=== PATIENT | male | born 1945 | race Caucasian/White ===

== ENCOUNTER 2017-02-21 07:57 | Day surgery (SDC) | payer MEDICARE ==
[~2017-02-21] VITALS: Ht 177.8 cm; Wt 118.2 kg
[~2017-02-21 07:57] MED LIST: ASPI81CH CHEW; CHLO25TA2 PO; LEFL20TA11 PO; LISI-588 PO; PYRI100T PO; SODI650T PO; ULOR40TA PO; VITA10003 PO
[2017-02-21] MEDS ORDERED: SODIUM CHLOR 0.9% 1000 ML IV SCH (08:00)
[2017-02-21] MEDS ORDERED: CHOL1TAB42 PO ×2 (08:27→08:32)
[2017-02-21] MEDS ORDERED: OCUVTAB PO ×2 (08:27→08:32)
[2017-02-21] MEDS ORDERED: ROSU1TAB4 PO ×2 (08:27→08:32)
[2017-02-21] MEDS ORDERED: FURO1TAB62 PO ×2 (08:27→08:32)
[2017-02-21] MEDS ORDERED: CYAN1TAB24 PO ×2 (08:27→08:32)
[2017-02-21] MEDS ORDERED: [UNRECOGNIZED DRUG - CODE] PO ×2 (08:27→08:32)
[2017-02-21] MEDS ORDERED: SODIUM CHLORIDE 2 ML FLUSH PRN IV FLUSH (08:30)
[2017-02-21] MEDS ORDERED: ULOR40TA PO (08:32)
[2017-02-21] MEDS ORDERED: ASPI81CH CHEW (08:32)
[2017-02-21] MEDS ORDERED: LEFL20TA11 PO (08:32)
[2017-02-21] MEDS ORDERED: SODI650T PO (08:32)
[2017-02-21] MEDS ORDERED: PYRI100T PO (08:32)
[2017-02-21] MEDS ORDERED: SODIUM CHLORIDE 2 ML FLUSH BID IV FLUSH SCH (09:00)
[2017-02-21 09:07] VITALS: BP 146/81; PULSE 75; RESP 20; TEMP 98.7; O2SAT 97
[2017-02-21 09:18] LABS: AUTOMATED NEUTROPHIL # 8.3 TH/MM3 (1.8-7.7); BASOPHIL # 0.1 TH/MM3 (0-0.2); BASOPHIL % 0.5 % (0.0-2.0); EOSINOPHIL # 0.2 TH/MM3 (0-0.4); HEMATOCRIT 36.4 % (39.0-51.0); HEMO FLAGS DIFF FINAL; LYMPH % 11.2 % (9.0-44.0); LYMPHOCYTE # 1.2 TH/MM3 (1.0-4.8); MEAN CELL VOLUME 88.4 FL (80.0-100.0); MEAN CORPUSCULAR HEMOGLOBIN 28.9 PG (27.0-34.0); MEAN CORPUSCULAR HGB CONC 32.7 % (32.0-36.0); MONO % 7.2 % (0.0-8.0); NEUT % 79.1 % (16.0-70.0); PLATELET COUNT 251 TH/MM3 (150-450); RED BLOOD COUNT 4.12 MIL/MM3 (4.50-5.90); RED CELL DISTRIBUTION WIDTH 13.9 % (11.6-17.2); WHITE BLOOD COUNT 10.5 TH/MM3 (4.0-11.0)
[2017-02-21 09:27] LABS: APTT (PATIENT) 29.8 SEC (24.3-30.1); PROTHROMBIN TIME - PATIENT 10.5 SEC (9.8-11.6)
[2017-02-21] MEDS ORDERED: LIDOCAINE 1%/EPINEPHrine 1:100,000 SOLN 20 ML VIAL ONE (09:29)
[2017-02-21] MEDS ORDERED: fentaNYL CITRATE 250 MCG/5 ML AMP ONE (09:38)
[2017-02-21] MEDS ORDERED: MIDAZOLAM HCL 2 MG/2 ML VIAL ONE (09:38)
[2017-02-21 10:25] VITALS: BP 125/68; PULSE 82; RESP 20; TEMP 97.9; O2SAT 95
[2017-02-21 10:40] VITALS: BP 122/61; PULSE 65; RESP 20; O2SAT 97
[2017-02-21 10:55] VITALS: BP 126/64; PULSE 70; RESP 18; O2SAT 98
[2017-02-21 11:10] LABS: BONE MARROW PROCESSING COMPLETE; IRON STAIN DONE; JENNER GIEMSA STAIN DONE
--- NOTE | 2017-02-21 14:25 | RADRPT ---
EXAM DATE/TIME: 02/21/2017 09:53 [facility] COMPARISON: No previous studies available for comparison. INDICATIONS : Possible myeloma. SEDATION TIME: 30 minutes BIOPSY SITE: Right MEDICATION(S): 1.) 4 mg midazolam (Versed) IV 2.) 250 mcg fentanyl (Sublimaze) IV DEVICE(S): 1.) 11 gauge Bone marrow biopsy needle MEDICAL HISTORY : None. SURGICAL HISTORY : None. ENCOUNTER: Initial ACUITY: 1 day PAIN SCORE: 0/10 LOCATION: Right A total of one core specimen(s) were obtained and sent to the laboratory for pathologic evaluation. PROCEDURE: 1. CT guided bone marrow biopsy. 2. Conscious sedation with continuous EKG and oximetry monitoring. 3. EKG and oximetry remained stable throughout the procedure. Prior to the procedure informed consent was obtained. Any appropriate prior imaging studies were rev iewed. Using automated exposure control and adjustment of the mA and/or kV according to patient size , radiation dose was kept as low as reasonably achievable to obtain optimal diagnostic quality images . DICOM format image data is available electronically for review and comparison. The site was prepped in a sterile fashion. Full sterile technique was used, including cap, mask, sam rile gloves and gown and a large sterile sheet. Hand hygiene and 2% chlorhexidine and/or betadine/al cohol prep was utilized per protocol for cutaneous antisepsis. The skin and subcutaneous tissues wer e infiltrated with local anesthetic solution. With CT guidance the previously identified target was localized. Biopsy was performed using the presc ribed needle as above. Following biopsy marrow aspiration was performed with repeat puncture. Adequa te hemostasis was obtained with compression at the puncture site. Follow-up CT scan reveals no hemorrhage. Conscious sedation was performed with the prescribed dosages and duration as above in the presence of an independent trained radiology nurse to assist in the monitoring of the patient. EKG and oximetry remained stable throughout the procedure. The patient tolerated the procedure well and there were no complications. The patient was sent to Radiology Outpatient Unit in stable condition. CONCLUSION: 1. Uncomplicated CT guided bone marrow aspirate. 2. Uncomplicated CT guided bone marrow biopsy. Mamadou Nicole MD FACR on February 21, 2017 at 14:21 Board Certified Radiologist. This report was verified electronically.
== END 2017-02-21 11:15 | disposition home or self-care (01) ==
LOC: HRAD 07:57 → HRIP 08:06 → HRAD 11:15
PROVIDERS: ATTEND Internal Medicine Hematology
DX: D47.2 Monoclonal gammopathy (principal); C90.30 Solitary plasmacytoma not having achieved remission; Z01.818 Encounter for other preprocedural examination; I10 Essential (primary) hypertension; I12.9 Hypertensive chronic kidney disease with stage 1 through stage 4 chronic kidney disease, or unspecified chronic kidney disease; N18.9 Chronic kidney disease, unspecified; G47.30 Sleep apnea, unspecified; M06.9 Rheumatoid arthritis, unspecified; N20.0 Calculus of kidney; M19.90 Unspecified osteoarthritis, unspecified site
CPT/HCPCS: 38221; 77012; 85025; 85097; 85610; 85730; 88184; 88185; 88305; 88311; 88313; 88341; 88342; 99152; 99153; C1830; G0364; J2250; J3010; J7030

== ENCOUNTER 2017-04-29 06:37 | Day surgery (SDC) | payer MEDICARE ==
[2017-04-29] VITALS (10 sets, daily range): BP systolic 104–141; BP diastolic 53–106; PULSE 75–89; RESP 18–20; TEMP 97.7–98.3; O2SAT 95–99
[~2017-04-29] VITALS: Ht 177.8 cm; Wt 113.6 kg
[~2017-04-29 06:37] MED LIST changes: -CHLO25TA2 PO; +CHOL1TAB42 PO; +CYAN1TAB24 PO; +FURO1TAB62 PO; -LISI-588 PO; +OCUVTAB PO; +ROSU1TAB4 PO; -VITA10003 PO; +[UNRECOGNIZED DRUG - CODE] PO
[2017-04-29] MEDS ORDERED: GELATIN 12 MM/7 MM FOAM ONE (06:38)
[2017-04-29] MEDS ORDERED: SODIUM CHLOR 0.9% 1000 ML IV SCH (07:15)
[2017-04-29] MEDS ORDERED: LIDOCAINE HCL 1% 20 ML VIAL ONE (07:58)
[2017-04-29] MEDS ORDERED: MIDAZOLAM HCL 5 MG/5 ML VIAL ONE (08:12)
[2017-04-29] MEDS ORDERED: THROMBIN (TOPICAL) 5,000 UNIT VIAL ONE (08:21)
--- NOTE | 2017-04-29 09:02 | RADRPT ---
EXAM DATE/TIME: 04/29/2017 08:17 [facility] COMPARISON: No previous studies available for comparison.8 INDICATIONS : Left sided nephrotic proteinuria. SEDATION TIME: 15 minutes BIOPSY SITE: Left kidney. MEDICATION(S): 1.) 3 mg midazolam (Versed) IV 2.) 150 mcg fentanyl (Sublimaze) DEVICE(S): 1.) 18 gauge BioPince needle 2.) 16 gauge Alva blunt needle MEDICAL HISTORY : Renal calculi. Prostate cancer. SURGICAL HISTORY : Tonsillectomy. ENCOUNTER: Initial ACUITY: 1 day PAIN SCORE: 10 LOCATION: Left kidney region. A total of three core specimen(s) were obtained and sent to the laboratory for pathologic evaluation. PROCEDURE: 1. CT guided left kidney biopsy. 2. Conscious sedation with continuous EKG and oximetry monitoring. 3. EKG and oximetry remained stable throughout the procedure. Prior to the procedure informed consent was obtained. Any appropriate prior imaging studies were rev iewed. Using automated exposure control and adjustment of the mA and/or kV according to patient size, radiat ion dose was kept as low as reasonably achievable to obtain optimal diagnostic quality images. DICOM format image data is available electronically for review and comparison. The site was prepped in a sterile fashion. Full sterile technique was used, including cap, mask, sam rile gloves and gown and a large sterile sheet. Hand hygiene and 2% chlorhexidine and/or betadine/al cohol prep was utilized per protocol for cutaneous antisepsis. The skin and subcutaneous tissues wer e infiltrated with local anesthetic solution. With CT guidance the previously identified target was localized. Biopsy was performed using the presc ribed needle as above. Adequate hemostasis was obtained with compression at the puncture site. Follow-up CT scan reveals no hemorrhage. The patient tolerated the procedure well and there were no complications. The patient was returned to the Radiology Outpatient Unit in stable condition. CONCLUSION: Uncomplicated CT guided biopsy. Joe Bargre MD on April 29, 2017 at 9:00 Board Certified Radiologist. This report was verified electronically.
[2017-04-29 10:37] LABS: HEMATOCRIT 30.5 % (39.0-51.0); MEAN CELL VOLUME 87.1 FL (80.0-100.0); MEAN CORPUSCULAR HGB CONC 33.3 % (32.0-36.0); PLATELET COUNT 285 TH/MM3 (150-450); RED CELL DISTRIBUTION WIDTH 14.5 % (11.6-17.2); REVIEW FLAG FINAL; WHITE BLOOD COUNT 10.3 TH/MM3 (4.0-11.0)
--- NOTE | 2017-04-29 11:36 | PD.RAD ---
Post CT Procedure Prog Note Pre Procedure Diagnosis: (1) Renal calculus, right Post Procedure Diagnosis: (1) Renal calculus, right Procedure Date: Apr 29, 2017 Supervising Radiologist: Joe Barger Anesthesia: Conscious Sedation Plan of Activity Patient to Unit: [facility] Patient Condition: Good See PACS Report for procedural detail/treatment Biopsy Imaging Guidance: CT Side: Left Biopsy Procedure: Kidney Specimen: Core Biopsy Joe Barger MD Apr 29, 2017 11:36
[2017-04-29 12:10] LABS: AUTOMATED NEUTROPHIL # 7.1 TH/MM3 (1.8-7.7); BASOPHIL # 0.1 TH/MM3 (0-0.2); BASOPHIL % 0.8 % (0.0-2.0); EOSINOPHIL # 0.3 TH/MM3 (0-0.4); EOSINOPHIL % 3.1 % (0.0-4.0); HEMATOCRIT 29.9 % (39.0-51.0); HEMO FLAGS DIFF FINAL; LYMPH % 13.5 % (9.0-44.0); LYMPHOCYTE # 1.3 TH/MM3 (1.0-4.8); MEAN CELL VOLUME 86.6 FL (80.0-100.0); MEAN CORPUSCULAR HEMOGLOBIN 29.3 PG (27.0-34.0); MEAN CORPUSCULAR HGB CONC 33.8 % (32.0-36.0); MONO % 6.3 % (0.0-8.0); NEUT % 76.3 % (16.0-70.0); PLATELET COUNT 247 TH/MM3 (150-450); RED BLOOD COUNT 3.45 MIL/MM3 (4.50-5.90); RED CELL DISTRIBUTION WIDTH 14.4 % (11.6-17.2); WHITE BLOOD COUNT 9.4 TH/MM3 (4.0-11.0)
== END 2017-04-29 13:00 | disposition home or self-care (01) ==
LOC: HRAD 06:37 → HRIP 06:43 → HRAD 13:00
PROVIDERS: ATTEND Surgery
DX: R80.8 Other proteinuria (principal); N20.0 Calculus of kidney; Z85.46 Personal history of malignant neoplasm of prostate
CPT/HCPCS: 50200; 77012; 85025; 85027; 88313; 88346; 88348; 88350; 88368; J2250; J3010

== ENCOUNTER → 2017-05-09 | Day surgery (SDC) | payer MEDICARE ==
[~2017-05-09] MED LIST changes: +ACETAMINOPHEN 1000 MG/100 ML 100 ML IV ONE; +BUPIVACAINE/EPINEPHRINE 0.25% 50 ML VIAL ONE; +KETOROLAC TROMETHAMINE 30 MG/ML (IVP) VIAL IV PUSH ONE; +LACTATED RINGER'S 1000 ML INJ 1,000 ML ONE; +LIDOCAINE 1.5%/EPINEPHrine 1:200,000 PF SOLN 30 ML AMP ONE; +MIDAZOLAM HCL 2 MG/2 ML VIAL ONE; +ONDANSETRON HCL 4 MG/2 ML VIAL IV PUSH ONE; +PROPOFOL 100 MG/10 ML INJ IV ONE; +ceFAZolin INJ 1,000 MG VIAL ONE
--- NOTE | 2017-05-09 10:31 | MP ---
cc: BRADY COOK DATE OF SURGERY: 05/09/2017 PREOPERATIVE DIAGNOSIS Large mass upper back. POSTOPERATIVE DIAGNOSIS Abscess (probable sebaceous cyst) upper back. PROCEDURE Incision, drainage and resection of the capsule of the abscess with primary closure. SURGEON Alonzo. LIGHTHOUSE KEEPER Florentin Stern, MS III. ANESTHESIA General. OPERATIVE FINDINGS AND PROCEDURE The patient was brought to the operating room and placed on a hurtado bag and rotated in the proper position for access to the upper back. Satisfactory general anesthesia was obtained and the upper back was then prepped and draped in the usual sterile fashion. Due to the fluctuance of this area an 18-gauge needle was used to penetrate the cavity and returned pus which was sent for culture and sensitivity as well as Gram stain. A transverse incision was then made and carried down sharply through the subcutaneous tissue and the cautery being used for hemostasis. Approximately 600 mL of purulent material was withdrawn. It was decided to resect the abscess cavity capsule which was accomplished by blunt dissection as well as use of the cautery to resect the entire thing. The abscess was approximately 15 x 10 cm in diameter. After resection of the capsule which was accomplished completely with the cautery, it was sent for permanent pathology. Hemostasis was strictly assured. A #10 fluted drain was placed into the abscess cavity through a separate stab incision and sutured to the skin with 3-0 nylon. After checking again for hemostasis, which was seen to be satisfactory, the skin was closed with kailey. The patient was then awakened and taken from the operating room, in satisfactory condition, having tolerated the procedure without problem. Estimated blood loss was 500 mL. The instrument counts, sponge counts and needle counts were reported as being correct x2 at the end of the procedure. MD CAMILO Martinez/LARON /10:10 AM /10:20 AM
== END | disposition home or self-care (01) ==
LOC: ESDC 06:35
PROVIDERS: ATTEND Surgery
DX: L02.212 Cutaneous abscess of back [any part, except buttock and flank] (principal); B95.7 Other staphylococcus as the cause of diseases classified elsewhere
CPT/HCPCS: 00300; 11406; 87015; 87070; 87077; 87116; 87186; 87205; 87206; 88304; J0131; J0690; J1885; J2250; J2405; J3010; J7120; 88305

== ENCOUNTER 2018-03-27 06:44 | Observation (INO) ==
[2018-03-27] MEDS ORDERED: Metoprolol Inj 5 MG/5 ML Vial ONE (07:10)
[2018-03-27] MEDS ORDERED: Sod Chloride 0.9% Inj 1,000 ML IV.SIG SCH ×2 (07:15→07:45)
[2018-03-27] MEDS ORDERED: Atropine Inj 1 MG/ML Vial IV.PUSH PRN ×2 (07:35→11:35)
[2018-03-27] MEDS ORDERED: Metoprolol Inj 5 MG/5 ML Vial IV.PUSH PRN (07:35)
[2018-03-27] MEDS ORDERED: DOBUTamine 250 MG/250 ML Premx 250 MG/250 ML BAG IV.CONT ONE (07:44)
[2018-03-27] MEDS ORDERED: DOBUTamine 250 MG/250 ML Premx 250 MG/250 ML BAG IV.CONT SCH (08:00)
[2018-03-27 08:12] LABS: Baso # (Auto) 0.1 th/mm3 (0.0-0.2); Baso % (Auto) 0.9 % (0.0-2.0); Eos # (Auto) 0.3 th/mm3 (0.0-0.4); Eos % (Auto) 3.6 % (0.0-4.0); Hematocrit 35.5 % (39.0-51.0); Hemoglobin 11.7 gm/dL (13.0-17.0); Lymph # (Auto) 1.1 th/mm3 (1.0-4.8); Lymph % (Auto) 14.9 % (9.0-44.0); Mean Corpuscular Hemoglobin 29.9 pg (27.0-34.0); Mean Corpuscular Volume 90.5 fL (80.0-100.0); Mean Platelet Volume 9.7 fL (7.0-11.0); Mono # (Auto) 0.8 th/mm3 (0.0-0.9); Mono % (Auto) 10.9 % (0.0-8.0); Neut # (Auto) 5.3 th/mm3 (1.8-7.7); Neut % (Auto) 69.7 % (16.0-70.0); Platelet Count 158 th/mm3 (150-450); Red Blood Count 3.92 mil/mm3 (4.50-5.90); Red Cell Distribution Width 14.8 % (11.6-17.2); White Blood Count 7.6 th/mm3 (4.0-11.0)
[2018-03-27 08:27] LABS: Albumin 3.4 g/dL (3.4-5.0); Carbon Dioxide 26.5 meq/L (21.0-32.0); Potassium 4.1 meq/L (3.5-5.1)
[2018-03-27] MEDS ORDERED: fentaNYL Citrate Inj 100 MCG/2 ML Ampul ONE ×2 (10:02→11:13)
[2018-03-27] MEDS ORDERED: Heparin/NS PF Inj 1,000 ML ONE (10:03)
--- NOTE | 2018-03-27 10:19 | ECHRPT ---
Indication: POSS TAVR CONCLUSIONS Mildly dilated left ventricle. The left ventricular systolic function is severely reduced with an estimated ejection fraction in th e range of 25-30%. Mild thickening of the aortic valve leaflets. Diffuse calcification of the aortic valve. Severe aortic valve stenosis. Aortic valve area is 0.56 cm. Aortic valve mean gradient is 42 mmHg. dobutamine infusion at 10 mcg/min BP: / HR: Rhythm: Sinus MEASUREMENTS (Male / Female) Normal Values Technical Quality:Fair 2D ECHO LV Diastolic Diameter PLAX 5.9 cm 4.2 - 5.9 / 3.9 - 5.3 cm LV Systolic Diameter PLAX 5.3 cm IVS Diastolic Thickness 1.1 cm 0.6 - 1.0 / 0.6 - 0.9 cm LVPW Diastolic Thickness 1.1 cm 0.6 - 1.0 / 0.6 - 0.9 cm LV Relative Wall Thickness 0.4 RV Internal Dim ED PLAX 3.0 cm LVOT Diameter 2.3 cm Aortic Root Diameter 3.4 cm LA Systolic Diameter LX 4.6 cm 3.0 - 4.0 / 2.7 - 3.8 cm DOPPLER AV Peak Velocity 427.0 cm/s AV Peak Gradient 72.9 mmHg AV Mean Gradient 42.0 mmHg AV Velocity Time Integral 79.7 cm LVOT Peak Velocity 57.9 cm/s LVOT Peak Gradient 1.3 mmHg LVOT Velocity Time Integral 10.7 cm AV Area Cont Eq vti 0.6 cm AV Area Cont Eq pk 0.6 cm FINDINGS LEFT VENTRICLE Mildly dilated left ventricle. The left ventricular systolic function is severely reduced with an estimated ejection fraction in th e range of 25-30%. AORTIC VALVE Trileaflet aortic valve. Mild thickening of the aortic valve leaflets. Diffuse calcification of the aortic valve. Severe aortic valve stenosis. Aortic valve area is 0.56 cm. Aortic valve mean gradient is 42 mmHg. Yon Parks MD, FACC (Electronically Signed) Final Date:27 March 2018 10:19
[2018-03-27] MEDS ORDERED: Lidocaine PF 1% Inj 30 ML Vial ONE (10:27)
[2018-03-27] MEDS ORDERED: Sodium Chlor 0.9% Inj 250 ML IV.SIG ONE (11:35)
[2018-03-27] MEDS ORDERED: oxyCODONE/Acetaminophen 10/325 Tablet PO PRN (11:35)
[2018-03-27] MEDS ORDERED: Temazepam 15 MG Capsule PO PRN (11:35)
[2018-03-27] MEDS ORDERED: Morphine Inj 4 MG/ML Vial IV.PUSH PRN (11:35)
[2018-03-27] MEDS ORDERED: Bacitracin Oint 0.9 GM Packet TOPICAL ONE (11:35)
[2018-03-27] MEDS ORDERED: Lidocaine 1% Inj 50 ML Vial INFILTRATN PRN (11:35)
[2018-03-27] MEDS ORDERED: Misc Info for Pharmacy OTHER STA (11:35)
[2018-03-27] MEDS ORDERED: Acetaminophen 325 MG Tablet PO PRN (11:35)
[2018-03-27] MEDS ORDERED: Lidocaine 2% Jelly 5 ML Syringe TOPICAL PRN (11:35)
[2018-03-27] MEDS ORDERED: Iohexol 350 MG/ML 50 ML Vial (for Cath Lab) IVCONTRAST ONE (11:36)
[2018-03-27] MEDS ORDERED: hydrALAZINE 25 MG Tablet PO PRN (11:39)
[2018-03-27] MEDS ORDERED: hydrALAZINE HCl Inj 20 MG/ML Vial IV.PUSH PRN (11:40)
--- NOTE | 2018-03-27 11:40 | CATHPROC ---
[employer] HIS Report Study Information Study Number Admission Scheduled Start Study Start [id number] Mar 27 2018 6:44AM 03/27/2018 Mar 27 2018 9:56AM [place] Service Cardiac Pacer/ICD Admit Source Facility Department Other [facility] - Authorization Specialist Physician and Clinical Staff Initial Yon Marrero Novelty Twister Tender Jesus Vuong RN Novelty Twister Tender Joshua NIELSEN, Baldemar RecordSissy Mata,RT(R) Scrub Shy Neumann ,RT(R) Procedures Performed Procedure Location (Site) Vessel Name Coronary Angiograms LCA Left Coronary Coronary Angiograms RCA Right Coronary Stent OM1 Prox CIRC Wire insertion Fem Art (right) Femoral Art Wire insertion Fem Vein (right) Femoral Vein Equipment Time Matcher Description Size Mfg Part Number Used/Scraped COPILOT VALVE, BLEEDBACK [id number] 11:00 LOW CRITICAL CARE Used CONTROL *[id number] ARROW INTERNATIONAL CATHETER, FR.7 BALLOON [id number] 10:00 FR 7 Used INC. WEDGE PRESSURE *[id number] TRANSDUCER, TRUWAVE [id number] 10:00 VELAZQUEZ MORA * Used W/STOCKCOCK *[id number] 670-004-00 *6905854 670-008-00 *5115125 670-008-00 *2783470 670-054-00 *[id number] 670-056-00 *[id number] 10:00 SYSTRAN BLANKET,WARM AIR CCL * Used *[id number] 10:00 SYSTRAN PACK, CCL CUSTOM * Used *[id number] [id number] 10:00 [employer] PACER PEN, SKIN DUAL W/ RULER * Used *[id number] 10:35 MEDTRONIC JL 4.0 DXTERITY CATHETER FR 5 Used *[id number] [id number] 10:35 MEDTRONIC JR 4.0 DXTERITY CATHETER FR 5 Used *[id number] [id number] 11:21 MEDTRONIC STENT, 3.0 18 INTEGRITY 3.0 18 Used *7513436 [id number] 11:24 [employer] Systems 30 KENDRA INDEFLATOR Used *[id number] [id number] 10:59 [employer] SHEATH, FR6.5 PRELUDE 11CM FR 6.5 038ACT Used *7614231 [id number] 10:00 [employer] WIRE, 3MMJ .035 180CM 180CM Used *[id number] [id number] 10:00 NAMIC MANIFOLD, 2 PORT * Used *[id number] [id number] 10:00 NAMIC MANIFOLD, 4 PORT * Used *[id number] 10:00 NYCOMED OMNIPAQUE, 350 MG, 150ML 150ML [id number] Used [id number] 10:00 TERUMO MEDICAL SHEATH, FR5 TERUMO (10CM) FR 5 Used *1783036 MEY075 11:15 TERUMO MEDICAL SHEATH, FR6 TERUMO (25CM) FR 6 Used *2848439 [id number] 11:27 TERUMO MEDICAL SHEATH, FR7 TERUMO (10CM) FR 7 Used *9477471 RCO356 10:00 TERUMO MEDICAL SHEATH, FR7 TERUMO (10CM) FR 7 Used *9092457 [id number] 11:16 TERUMO MEDICAL SHEATH, FR7 TERUMO (25CM) FR 7 Used *3607622 WIRE, RUNTHROUGH NS FLOPPY [id number] 11:08 TERUMO MEDICAL 180CM Used .014 180CM *[id number] Equipment Model, Serial, Lot Number and Expiration Data Description Model Number Serial Number Lot Number Expiration Date JL 4.0 DXTERITY CATHETER [id number] 07-01-2020 JR 4.0 DXTERITY CATHETER [id number] 09-25-2020 STENT, 3.0 18 INTEGRITY [id number] 05-27-2019 History: Current Medications Medication Dosage/Unit Route Frequency Last Date/Time Taken Statins (any) ASA History: Allergies Allergy Reaction No Known Allergies ciprofloxacin Nausea History: Risk Factors Family History of Hypertension Dyslipidemia Previous SD Previous Heart Failure Premature CAD Yes Yes Yes No Yes Prior Valve Prior PCI Prior CABG Surgery No No No Cerebrovascular Peripheral Artery Chronic Lung On Dialysis Diabetes Disease Disease Disease No No No No Yes History: Symptoms/Diagnosis Selection Items SOB History: Stress Tests Stress or Imaging Studies Performed No History: Other Disease Selection Items Gerd HTN History: Other Current Smoker No Labs Hgb (g/dl) Hct (%) WBC (l/cumm) Platelets (thousands) 11.60-17.00 35.00-51.00 4.00-11.00 150.00-450.00 11.7 35.5 7.6 158 Glucose (mg/dl) BUN (mg/dl) Creatinine (mg/dl) BUN:Creatinine (1:x) 74.00-106.00 7.00-18.00 0.50-1.30 10.00-20.00 107 53 2.1 25.2 Na (meq/l) K (meq/l) 136.00-145.00 3.50-5.10 142 4.1 CPK-MB (ng/ML) 0.50-3.60 Not Drawn Medication Medication Total Dose (Bolus/Oral) Medication Total Dosage/Unit 1% XYLOCAINE 20 mL ANGIOMAX BOLUS 16 mL FENTANYL 125 mcg PLAVIX 600 mg VERSED 6 mg Medications (Bolus/Oral) Medication Time Given Dosage/Unit Administered By Reason VERSED 03/27/2018 10:20:14 AM 2 mg Jesus Vuong 2 mg VERSED given in lab by Jesus Vuong RN in Right Antecubital via Peripheral IV. Ordered by Yon Dowd. FENTANYL 03/27/2018 10:21:10 AM 50 mcg Jesus Vuong 50 mcg FENTANYL given in lab by Jesus Vuong RN in Right Antecubital via Peripheral IV. Ordered by Yon Parks. 1% XYLOCAINE 03/27/2018 10:26:03 AM 20 mL Yon Parks 20 mL 1% XYLOCAINE given in lab by Yon Parks in Right Groin via Subcutaneous. VERSED 03/27/2018 10:27:50 AM 1 mg Jesus Vuong 1 mg VERSED given in lab by Jesus Vuong RN in Right Antecubital via Peripheral IV. Ordered by Yon Dowd. FENTANYL 03/27/2018 10:28:09 AM 25 mcg Jesus Vuong 25 mcg FENTANYL given in lab by Jesus Vuong RN in Right Antecubital via Peripheral IV. Ordered by Yon Parks. VERSED 03/27/2018 10:35:20 AM 1 mg Jesus Vuong 1 mg VERSED given in lab by Jesus Vuong RN in Right Antecubital via Peripheral IV. Ordered by Yon Dowd. FENTANYL 03/27/2018 10:36:10 AM 25 mcg Jesus Vuong 25 mcg FENTANYL given in lab by Jesus Vuong RN in Right Antecubital via Peripheral IV. Ordered by Yon Parks. VERSED 03/27/2018 10:57:21 AM 1 mg Jesus Vuong 1 mg VERSED given in lab by Jesus Vuong RN in Right Antecubital via Peripheral IV. Ordered by Yon Dowd. ANGIOMAX BOLUS 03/27/2018 11:00:18 AM 16 mL Jesus Vuong 16 mL ANGIOMAX BOLUS given in lab by Jesus Vuong RN in Right Antecubital via Peripheral IV. Ordere d by Yon Parks. VERSED 03/27/2018 11:18:53 AM 1 mg Jesus Vuong 1 mg VERSED given in lab by Jesus Vuong RN in Right Antecubital via Peripheral IV. Ordered by Yon Dowd. FENTANYL 03/27/2018 11:19:33 AM 25 mcg Jesus Vuong 25 mcg FENTANYL given in lab by Jesus Vuong RN in Right Antecubital via Peripheral IV. Ordered by Yon Parks. PLAVIX 03/27/2018 11:35:30 AM 600 mg Jesus Vuong 600 mg PLAVIX given in lab by Jesus Vuong RN in Right Antecubital via Oral. Ordered by Jeff Parks. Medication (Drip) Medication Time Given Dosage/Unit Concentration/Unit Diluent (ml) Solution ANGIOMAX DRIP 03/27/2018 11:04:03 AM 1.75 mg/kg/hr 250 mg 50 NaCl .9 1.75 mg/kg/hr ANGIOMAX DRIP given in lab by Jesus Vuong RN in Right Antecubital via Peripheral IV. Pump/Drip Flow = 37.8 ml/hr using NaCl .9 with a concentration of 250 mg in 50 ml. Ordered by Yon Parks. IV Solutions 03/27/2018 9:56:38 AM 50 mL (IV) NaCl .9 IV Solutions given in lab by Jesus Vuong RN in Right Antecubital via Peripheral IV. Pump/Drip Flow using NaCl .9. Initial Case Assessment Cardiovascular Rhythm tachy Edema Present Skin color Skin Moderate Normal Warm Dry Circulatory - Right Pulses Dorsalis Pedis Femoral 2 1 Scale (0,1,2,3,4,d) Circulatory - Left Pulses Dorsalis Pedis Femoral d 1 Scale (0,1,2,3,4,d) Neurological State Oriented to time-place- Alert Moves all extremities person Chronological Log Time Study Chronological Log 9:55:18 Patient arrived via Bed. 9:56:21 Patient Name, D.O.B, / Armband Verified By R.N. 9:56:22 Consent signed by the physician and the patient and verified by the Authorization Specialist staff. 9:56:23 Pre-op and post- op instructions given; patient acknowledges understanding of instructions. 9:56:27 Presedation assessment performed by Authorization Specialist RN. 9:56:29 Allens test performed on the right radial and ulnar artery. 9:56:31 Patient has been NPO for More than 6Hrs. 9:56:32 Skin Breakdown- +2 edema lower extremities 9:56:33 Patient Warmer Placed on the Table. 9:56:34 Ivonne Prominences Protected 9:56:37 A # 20 IV was noted in the Antecubital (right). Grade = 0 9:56:38 IV Solutions given in lab by Jesus Vuong RN in Right Antecubital via Peripheral IV. Pump /Drip Flow using NaCl .9. 9:56:39 History and physical on the chart or being dictated. Assessment: Initial Case, Rhythm=tachy, Edema=Mod, Color=Normal, Skin = Warm, Dry Right Pulses: Kev Ped=2, Femoral=1 9:56:40 Left Pulses: Kev Ped=d, Femoral=1 Neurological: State=Alert, Ox3, CRAWFORD 10:01:46 Reference ECG taken Vitals capture started with the following parameters, Patient=Adult, Interval=3 min, Initial Pr itqjdm=869 mmHg, 10:01:58 Deflation Rate=5 mmHg, Cuff placed on Left Arm 10:02:37 II=395 bpm, AOKC=244/87 mmhg, SpO2=98.0 %, Resp=20 B/min 10:05:35 ZX=765 bpm, GFLL=199/90 mmhg, SpO2=99.0 %, Resp=16 B/min 10:08:31 AU=345 bpm, XIOL=345/97 mmhg, SpO2=98.0 %, Resp=18 B/min 10:08:43 Bilateral groins prepped with 2% chlorhexidine, and draped after a 3 minute waiting time. 10:11:35 QR=899 bpm, ZXWP=493/90 mmhg, SpO2=98.0 %, Resp=13 B/min 10:14:07 paged 10:14:34 MI=378 bpm, PIRL=208/89 mmhg, SpO2=98.0 %, Resp=17 B/min 10:14:50 Pressure channel 1 zeroed. 10:17:34 EX=331 bpm, PHOD=533/96 mmhg, SpO2=98.0 %, Resp=9 B/min 10:20:10 MD arrived. 10:20:14 2 mg VERSED given in lab by Jesus Vuong RN in Right Antecubital via Peripheral IV. Order ed by Yon Parks. Time Out. Correct patient, correct procedure, correct physician, labs, allergies, and equipment verified with paint laboratory technician 10:20:17 team present. Fire risk assesment completed (see hard stop sheet for coding). Time Out Conc urred by MD and individual staff in procedure. 10:21:03 ZR=248 bpm, GZZK=367/87 mmhg, SpO2=99.0 %, Resp=20 B/min 10:21:10 50 mcg FENTANYL given in lab by Jesus Vuong RN in Right Antecubital via Peripheral IV. O rdered by Yon Parks. 10:23:36 LF=639 bpm, WLTA=777/81 mmhg, SpO2=97.0 %, Resp=11 B/min 10:26:02 Case Start 10:26:03 20 mL 1% XYLOCAINE given in lab by Yon Parks in Right Groin via Subcutaneous. 10:26:32 YH=005 bpm, PWHQ=812/87 mmhg, SpO2=98.0 %, Resp=16 B/min 10:27:50 1 mg VERSED given in lab by Jesus Vuong RN in Right Antecubital via Peripheral IV. Order ed by Yon Parks. 10:28:09 25 mcg FENTANYL given in lab by Jesus Vuong RN in Right Antecubital via Peripheral IV. O rdered by Yon Parks. 10:29:35 NH=754 bpm, ZHXL=086/88 mmhg, SpO2=96.0 %, Resp=15 B/min 10:32:35 UL=315 bpm, WRND=668/84 mmhg, SpO2=98.0 %, Resp=20 B/min 10:35:09 Access site was Right Femoral Artery. 10:35:20 1 mg VERSED given in lab by Jesus Vuong RN in Right Antecubital via Peripheral IV. Order ed by Yon Parks. 10:35:24 A SHEATH, FR5 TERUMO (10CM) FR 5 was advanced into the Fem Art (right) using the Percutaneo us technique. 10:35:35 JS=036 bpm, BYLV=234/80 mmhg, SpO2=98.0 %, Resp=19 B/min 10:36:10 25 mcg FENTANYL given in lab by Jesus Vuong RN in Right Antecubital via Peripheral IV. O rdered by Yon Parks. 10:37:18 Access site was Right Femoral Vein. 10:37:25 A SHEATH, FR7 TERUMO (10CM) FR 7 was advanced into the Fem Vein (right) using the Percutane ous technique. 10:38:33 HR=99 bpm, NPOV=362/84 mmhg, SpO2=97 %, Resp=17 B/min 10:39:05 A CATHETER, FR.7 BALLOON WEDGE PRESSURE FR 7 was inserted via Fem Vein (right) Recorded Pressure: RA, HR=97, Condition=Condition 1 10:39:59 (Right Atrium) RA 14/10/8 Recorded Pressure: RV, HR=95, Condition=Condition 1 10:40:17 (Right Ventricle) RV 61/7/12 10:41:36 HR=94 bpm, ODHU=985/73 mmhg, SpO2=98.0 %, Resp=18 B/min 10:42:01 A WIRE, 3MMJ .035 180CM 180CM was inserted via Fem Vein (right). 10:42:18 Wire removed Recorded Pressure: PCW, WL=610, Condition=Condition 1 10:43:49 (Pulmonary Capillary Wedge) PCW 41/40/32 Recorded Pressure: MPA, HR=98, Condition=Condition 1 10:44:06 (Main Pulmonary Artery) MPA 57/29/42 10:44:32 HR=95 bpm, YFPM=191/77 mmhg, SpO2=99.0 %, Resp=17 B/min 10:44:43 Saturation: Site=PA (Pulmonary Artery) , O2=67.1 %, Hgb=11.7 gm/dl, Condition=Condition 1. Used in calculation. 10:45:12 Saturation: Site=Ao (Aorta) , O2=97.2 %, Hgb=11.7 gm/dl, Condition=Condition 1. Used in deirdre culation. 10:45:41 [place] Les Catheter Removed A JL 4.0 DXTERITY CATHETER FR 5 was advanced over a wire. OMNIPAQUE, 350 MG, 150ML 150ML was us ed for 10:46:54 injections. 10:47:34 HR=96 bpm, BCCZ=481/79 mmhg, SpO2=98.0 %, Resp=12 B/min After removing the current catheter a JL 5.0 INFINITI CATHETER FR 5 was advanced over a WIRE, 3 MMJ .035 180CM 10:48:21 180CM. Recorded Pressure: Ao, HR=98, Condition=Condition 1 10:49:25 (Aorta) Ao 105/67/83 10:50:32 HR=97 bpm, IZZL=229/85 mmhg, SpO2=98.0 %, Resp=12 B/min 10:50:59 The LCA was injected and visualized at various angles. OMNIPAQUE, 350 MG, 150ML 150ML used . 10:53:35 HR=93 bpm, QCRN=865/79 mmhg, SpO2=99.0 %, Resp=10 B/min After removing the current catheter a JR 4.0 DXTERITY CATHETER FR 5 was advanced over a WIRE, 3 MMJ .035 180CM 10:54:03 180CM. 10:56:35 HR=91 bpm, BZGT=458/81 mmhg, SpO2=98.0 %, Resp=18 B/min 10:56:52 The RCA was injected and visualized at various angles. OMNIPAQUE, 350 MG, 150ML 150ML used . 10:57:21 1 mg VERSED given in lab by Jesus Vuong RN in Right Antecubital via Peripheral IV. Order ed by Yon Parks. 10:58:33 Catheter was removed A SHEATH, FR6.5 PRELUDE 11CM FR 6.5 was exchanged in the Fem Art (right). This was necessary in order to 10:58:38 accomodate a larger catheter. 10:59:35 HR=94 bpm, DNCI=841/77 mmhg, SpO2=99.0 %, Resp=20 B/min 16 mL ANGIOMAX BOLUS given in lab by Jesus Vuong RN in Right Antecubital via Peripheral IV. Ordered by Charly, 11:00:18 Yon. A XB 4.0 GUIDE CATHETER FR 6 was advanced over a wire. OMNIPAQUE, 350 MG, 150ML 150ML was used for 11:01:27 injections. 11:02:35 HR=94 bpm, NLIY=670/85 mmhg, SpO2=99.0 %, Resp=26 B/min After removing the current catheter a XB 3.5 GUIDE CATHETER FR 6 was advanced over a WIRE, 3MMJ .035 180CM 11:03:39 180CM. 1.75 mg/kg/hr ANGIOMAX DRIP given in lab by Jesus Vuong, RN in Right Antecubital via Peripher al IV. Pump/Drip Flow 11:04:03 = 37.8 ml/hr using NaCl .9 with a concentration of 250 mg in 50 ml. Ordered by Yon Parks. 11:05:38 HR=94 bpm, ZEZM=692/79 mmhg, SpO2=98.0 %, Resp=25 B/min After removing the current catheter a JL 4.0 GUIDE CATHETER FR 6 was advanced over a WIRE, 3MMJ .035 180CM 11:06:41 180CM. 11:08:38 HR=94 bpm, WCSU=719/84 mmhg, SpO2=99.0 %, Resp=11 B/min After removing the current catheter a JL 5.0 GUIDE CATHETER FR 6 was advanced over a WIRE, 3MMJ .035 180CM 11:10:14 180CM. 11:11:34 HR=93 bpm, RDMK=686/89 mmhg, SpO2=99.0 %, Resp=27 B/min 11:14:11 A WIRE, 3MMJ .035 180CM 180CM was inserted via Fem Art (right). 11:14:17 Catheter was removed A SHEATH, FR6 TERUMO (25CM) FR 6 was exchanged in the Fem Art (right). This was necessary in or ryann for catheter 11:14:20 support. 11:14:38 HR=92 bpm, MTXI=083/82 mmhg, SpO2=99.0 %, Resp=10 B/min A SHEATH, FR7 TERUMO (25CM) FR 7 was exchanged in the Fem Art (right). This was necessary in or ryann to minimize 11:15:52 site leakage. 11:17:38 HR=91 bpm, OPIV=689/82 mmhg, SpO2=99.0 %, Resp=19 B/min A JL 5.0 GUIDE CATHETER FR 6 was advanced over a wire. OMNIPAQUE, 350 MG, 150ML 150ML was used for 11:17:43 injections. 11:18:53 1 mg VERSED given in lab by Jesus Vuong RN in Right Antecubital via Peripheral IV. Order ed by Yon Parks. 11:19:33 25 mcg FENTANYL given in lab by Jesus Vuong RN in Right Antecubital via Peripheral IV. O rdered by Yon Parks. 11:19:49 A WIRE, RUNTHROUGH NS FLOPPY .014 180CM 180CM was inserted via Fem Art (right). 11:20:41 HR=87 bpm, TRII=679/76 mmhg, SpO2=99.0 %, Resp=15 B/min An STENT, 3.0 18 INTEGRITY 3.0 18 Bare Metal Stent was inserted through a JL 5.0 GUIDE CATHETER FR 6 over a 11:21:56 WIRE, RUNTHROUGH NS FLOPPY .014 180CM 180CM. A STENT, 3.0 18 INTEGRITY 3.0 18 was deployed using a 30 KENDRA INDEFLATOR at 15 atmospheres for 1 5 seconds in 11:23:34 the OM1 Prox. 11:23:39 HR=89 bpm, NUOP=631/79 mmhg, SpO2=99.0 %, Resp=8 B/min 11:24:09 Delivery device removed 11:25:37 Wire removed 11:26:37 HR=92 bpm, VGYJ=808/84 mmhg, SpO2=99.0 %, Resp=23 B/min 11:26:43 Catheter was removed A SHEATH, FR7 TERUMO (10CM) FR 7 was exchanged in the Fem Art (right). This was necessary in or ryann to achieve 11:27:08 vascular hemostasis. 11:27:49 Case End (Physician broke scrub) 11:29:39 HR=89 bpm, RPWM=896/82 mmhg, SpO2=99.0 %, Resp=18 B/min 11:32:40 HR=92 bpm, UYST=586/84 mmhg, NqI5=239.0 %, Resp=14 B/min 11:35:30 600 mg PLAVIX given in lab by Jesus Vuong RN in Right Antecubital via Oral. Ordered by Yon Everett. 11:35:38 In the Fem Art (right) the SHEATH, FR7 TERUMO (10CM) FR [address] bong Parks. 11:35:42 FL=379 bpm, RFEZ=634/86 mmhg, TzZ6=113.0 %, Resp=22 B/min 11:35:46 In the Fem Vein (right) the SHEATH, FR7 TERUMO (10CM) FR [address] by Damir Parks. 11:35:54 Sterile dressing applied to site 11:35:55 No case complications noted. 11:35:56 Cine recording checked. 11:35:58 Holding Area notified of successful intervention. 11:35:59 Bedside Report will be given. 11:36:01 Implantable Device card placed in patient's chart. 11:36:07 A Left and Right Heart Cath was performed. 11:38:31 Vitals capture stopped. 11:43:50 Patient moved to [facility] End Study - Contrast Media Used In Study Contrast Total Opened (mL) Total Used (mL) Total Wasted (mL) Omnipaque 150 25 125 End Study - Maximum Contrast Load Max Contrast Load (mL) 257.1 End Study - Radiation Exposure Fluoro Time (minutes) 13.8 End Study - Patient Disposition Complications Transferred To Interventional Outcome No Telemetry Bed successful
[2018-03-27] MEDS ORDERED: Sod Chloride 0.9% Inj 1,000 ML IV.CONT SCH (11:45)
--- NOTE | 2018-03-27 12:27 | P.CON ---
History of Present Illness Service: Cardiothoracic surgery Consult date: 03/27/18 Requesting Physician: Yon Calvo Primary Care Provider: Uziel Dye MD Family Provider: Uziel Dye MD History of Present Illness: 72-year-old pleasant gentleman with a known history of chronic kidney disease and rheumatoid arthritis presenting with progressive symptoms of shortness of breath and cough. Further workup including chest x-ray revealed cardiomegaly with pulmonary edema prompting an echocardiogram which demonstrated severe aortic valvular stenosis with associated cardiomyopathy (EF 30%). Patient has been seen by Dr. Prajapati and Dr. calvo and is being worked up for aortic valve replacement. Cardiac catheterization today revealed severe OM and diagonal stenosis for which he underwent PCI with a bare metal stent to the OM. I am now being considered for surgical opinion regarding his valvular pathology. At the present time he remains chest pain-free, hemodynamically stable with no evidence of ongoing ischemia or decompensation. Review of Systems All other systems reviewed negative except as stated in HPI Constitutional: Reports weight loss Cardiovascular: Reports shortness of breath with activity Respiratory: Reports cough, Reports shortness of breath Musculoskeletal: Reports joint pain Comments: hip pain PMFSH - History History Provided By: Patient - Medical History Medical History: Medical History (Last Updated 03/27/18 @ 12:20 by Meliton Reddy MD) Anemia Anxiety Aortic stenosis CHF (congestive heart failure) Cardiomyopathy GERD (gastroesophageal reflux disease) HLD (hyperlipidemia) HTN (hypertension) History of type 2 diabetes mellitus Obesity (BMI 30-39.9) Obstructive sleep apnea Prostate CA Rheumatoid arthritis SOB (shortness of breath) - Tobacco History Second Hand Smoke Exposure: No Tobacco Use In Past 30 Days: No Smoking Status: Former smoker - Alcohol History How Often Do You Have a Drink Containing Alcohol: Never Medications and Allergies Active Medications: Active Medications Acetaminophen (Tylenol) 325 mg PO Q4H PRN PRN Reason: PAIN SCALE 1 TO 2 Aspirin (Aspirin Chew) 81 mg PO DAILY [facility] Atorvastatin Calcium (Lipitor) 20 mg PO DAILY [facility] Atropine Sulfate (Atropine Inj) 1 mg IV.PUSH ONCE PRN PRN Reason: SYMPTOMATIC BRADYCARDIA Atropine Sulfate (Atropine Inj) 0.5 mg IV.PUSH UNSCH PRN PRN Reason: VAGAL REPONSE Bacitracin (Bacitracin Oint Packet) 0.9 gm TOPICAL ONCE ONE Stop: 03/27/18 11:36 Carvedilol (Coreg) 3.125 mg PO BID [facility] Clopidogrel Bisulfate (Plavix) 600 mg PO ONCE ONE Stop: 03/27/18 11:36 Clopidogrel Bisulfate (Plavix) 75 mg PO DAILY [facility] Ferrous Sulfate (Ferosul) 325 mg PO DAILY [facility] Hydralazine HCl (Apresoline) 25 mg PO TID PRN PRN Reason: SBP > 160 mmHg Hydralazine HCl (Apresoline Inj) 10 mg IV.PUSH Q30M PRN PRN Reason: SBP > 160 mmHg\ Sodium Chloride (Ns Inj) 1,000 mls @ 30 mls/hr IV.SIG .Q24H [facility] Dobutamine HCl/Dextrose (Dobutamine 250 Mg/250 Ml Premx) 250 mg in 250 mls @ 0 mls/hr IV.CONT .Q0M [facility]; Protocol Sodium Chloride (Ns Inj) 250 mls @ 500 mls/hr IV.SIG ONCE ONE Stop: 03/27/18 12:04 Lidocaine HCl (Xylocaine 1% Inj (50 Ml)) 10 ml INFILTRATN UNSCH PRN PRN Reason: SHEATH REMOVAL Stop: 03/28/18 11:34 Lidocaine HCl (Xylocaine 2% Jelly) 5 ml TOPICAL PRN PRN PRN Reason: For male helton catheter insert Lorazepam (Ativan Inj) 0.5 mg IV.PUSH UNSCH PRN PRN Reason: ANXIETY Stop: 03/28/18 11:34 Metoprolol Tartrate (Lopressor Inj) 5 mg IV.PUSH [employer] PRN PRN Reason: ELEVATED BLOOD PRESSURE Miscellaneous Information (Misc Info For Pharmacy/Read Comments) 0 each OTHER STAT STA Stop: 03/27/18 11:36 Morphine Sulfate (Morphine Inj) 2 mg IV.PUSH Q30M PRN PRN Reason: BREAKTHROUGH PAIN Ondansetron HCl (Zofran Inj) 4 mg IV.PUSH Q4H PRN PRN Reason: NAUSEA Oxycodone/Acetaminophen (Percocet 5/325 Mg) 1 tab PO Q4H PRN PRN Reason: PAIN SCALE 3 TO 5 Oxycodone/Acetaminophen (Percocet 10/325 Mg) 1 tab PO Q4H PRN PRN Reason: PAIN SCALE 6 TO 10 Sodium Chloride (Ns Flush) 2 ml IV.FLUSH BID [facility] Sodium Chloride (Ns Flush) 2 ml IV.FLUSH PRN PRN PRN Reason: FLUSH AFTER USING IV ACCESS Temazepam (Restoril) 15 mg PO HS PRN PRN Reason: SLEEP Allergies Allergy/AdvReac Type Severity Reaction Status Date / Time ciprofloxacin AdvReac Nausea Verified 03/27/18 08:06 Home Medications Medication Instructions Recorded Confirmed Type aspirin [Aspir-81] 81 mg PO DAILY 03/27/18 03/27/18 History cholecalciferol (vitamin D3) 2,000 unit PO TID 03/27/18 03/27/18 History [Vitamin D3] cyanocobalamin (vitamin B-12) 1,000 mcg PO DAILY 03/27/18 03/27/18 History [Vitamin B-12] febuxostat [Uloric] 40 mg PO DAILY 03/27/18 03/27/18 History furosemide 20 mg PO DAILY 03/27/18 03/27/18 History leflunomide 10 mg PO DAILY 03/27/18 03/27/18 History pyridoxine (vitamin B6) [Vitamin 100 mg PO BID 03/27/18 03/27/18 History B-6] rosuvastatin 5 mg PO DAILY 03/27/18 03/27/18 History sodium bicarbonate 650 mg PO Q4-6H 03/27/18 03/27/18 History vit C-vit [id number] 1 cap PO DAILY 03/27/18 03/27/18 History [Ocuvite] Physical Exam Vital signs: Vital Signs 03/27/18 08:13 Temperature 99.3 F Pulse Rate 104 H Respiratory Rate 18 Blood Pressure 137/88 Pulse Oximetry 99 Intake & Output 03/26/18 03/27/18 03/27/18 18:59 06:59 18:59 Weight 108 kg Other: Weight On Admission 108 kg - Constitutional no acute distress - Routine HEENT Exam Head: Present: normocephalic, atraumatic Eye: Present: EOMI, PERRL ENT: Present: mucous membranes moist - Routine Neck Exam Present: supple, full ROM. Absent: JVD, carotid bruit, lymphadenopathy - Routine Respiratory Exam Present: CTA bilaterally - Routine Cardiovascular Exam Present: RRR, S1, S2, murmur. Absent: gallop, rubs, JVD - Detailed Cardiovascular Exam: Murmur 1 Type: Present: holosystolic Location: Present: right sternal border Characteristics: Present: crescendo - Routine Abdominal Exam Present: soft, normoactive bowel sounds. Absent: tenderness, distended, rebound , guarding - Routine Extremities Exam Present: full ROM, pulses intact, normal capillary refill. Absent: cyanosis, clubbing, edema - Routine Skin Exam Present: intact. Absent: cyanosis, erythema - Routine Neurological Exam Present: alert, oriented X3, CN II-XII intact Assessment and Plan - Assessment (1) Severe aortic valve stenosis Code(s): I35.0 - Nonrheumatic aortic (valve) stenosis Status: Acute (2) Cardiomyopathy Code(s): I42.9 - Cardiomyopathy, unspecified Status: Acute (3) CAD (coronary artery disease), [place] coronary artery Code(s): I25.10 - Atherosclerotic heart disease of [place] coronary artery without angina pectoris Status: Acute - Plan The clinical and ECHO findings were discussed in detail with the patient. Therapeutic options available including TAVR versus SAVR was discussed. I agree that [he] will maximally benefit from TAVR given [his] size and significant medical comorbidities including immunosuppression for RA. The risks, complications including but not limited to bleeding, infection, stroke, myocardial injury and , and benefits of the procedure were discussed in details and all questions answered. The patient understands the provided information and agrees to proceed with the planned operation. Proceed with TAVR. Thank you allowing me to participate in the care of this patient.
--- NOTE | 2018-03-27 12:32 | P.PNCV ---
- Note Subjective/Hospital Course: Risk Model and Variables - STS Adult Cardiac Surgery Database Version 2.81 RISK SCORES About the STS Risk Calculator Procedure: AV Replacement + CAB Risk of Mortality: 7.673% Morbidity or Mortality: 44.922% Long Length of Stay: 25.381% Short Length of Stay: 10.317% Permanent Stroke: 2.207% Prolonged Ventilation: 31.087% DSW Infection: 1.026% Renal Failure: 21.399% Reoperation: 15.289% Result Diagrams: 03/27/18 07:45 03/27/18 07:45
[2018-03-27 13:04] LABS: Bilirubin,Urine Negative (Negative); Clarity,Urine Clear (Clear); Color,Urine Yellow (Yellw/Straw); Glucose,Urine (UA) Negative (Negative); Hyaline Casts,Urine 1 /lpf (0-3); Leukocyte Esterase,Urine Negative (Negative); Nitrite,Urine Negative (Negative); Specific Gravity,Urine 1.012 (1.002-1.035)
--- NOTE | 2018-03-27 13:07 | MA ---
cc: Yon Parks MD DATE: 03/27/2018 INDICATIONS: Preoperative evaluation for severe aortic valve stenosis. His total amount of contrast administered: 25 mL. His methods: Risks, benefits, and alternatives discussed with the patient. The patient understood and consented. PROCEDURE: The patient was brought into the catheterization lab and placed on the catheterization table. The right groin was prepped and draped in a sterile fashion. The right groin was anesthetized with 2% lidocaine. Right common femoral artery was cannulated and a 5-[place] 11-cm sheath was placed without difficulty. Right femoral vein was accessed and a 7-[place] sheath was placed without difficulty. RIGHT HEART CATHETERIZATION: Intraventricular hemodialysis. PROCEDURES PERFORMED: 1. Fluoroscopy with interpretation. 2. Right heart catheterization. 3. Coronary angiography. 4. Percutaneous coronary intervention with bare-metal stent to the first obtuse marginal branch. RIGHT HEART CATHETERIZATION: A 7-[place] Williams-Les pole arterial catheter was advanced through the right atrium to the level of the pulmonary artery under fluoroscopic guidance. Hemodynamics performed in all chambers, while advancing to the pulmonary capillary wedge position. HEMODYNAMICS ARE FOLLOWS: 1. Right atrial pressure is 14 mmHg. 2. Right ventricular pressure measures 61/7 mmHg. 3. Pulmonary arterial pressure measures 57/29 mmHg with a mean pressure of 42 mmHg. 4. Pulmonary capillary wedge pressure is measured at 30 mmHg, with a prominent V wave present. CARDIAC OUTPUT: 5.9 liters per minute. CARDIAC INDEX: 2.6 liters per minute per m2. CORONARY ANGIOGRAPHY: 1. Left main coronary artery is widely patent. 2. Left anterior descending coronary artery has some lumen mild irregularities. Large caliber size extends out to the apex. There is a small diagonal branch with a 95% calcific stenosis, but it is less than 1 mm caliber size. 3. Left circumflex gives rise to a large first obtuse marginal branch with an 80% tubular stenosis. The remainder of the circumflex has minor lumen irregularities. 4. Right coronary has a 30% stenosis to the proximal segment. The right coronary gives rise to the posterior descending branch. PERCUTANEOUS CORONARY INTERVENTION: We had some difficulty engaging the left coronary circulation, had to upsize to a 7-[place] 23-mm bright-tipped [place] sheath due to tortuosity of the iliac arteries. We were finally able to engage with a 6-[place] JL5 guide catheter 0.014. A 180-cm [employer] Runthrough wire was navigated out of the first obtuse marginal branch. A 3.0 x 18-mm RX Integrity bare-metal stent advanced on the first obtuse marginal branch and deployed. Bare metal stent was chosen due to anticipated upcoming surgery. Angiomax was administered at elective procedure to maintain appropriate anticoagulation. Repeat angiography showed no residual stenosis, EZRA 3 flow. Guide catheter removed. Sheath was sewn into place to be removed with manual hemostasis. CONCLUSION: 1. Two-vessel branch coronary artery disease. 2. Successful percutaneous intervention with bare-metal stents of the first obtuse marginal branch. Medical management of small diagonal branch. 3. Moderate to severe pulmonary hypertension. 4. Low-normal cardiac output index. 5. Elevated left-sided filling pressures. PLAN: The patient will be monitored closely for any post-procedural complications and continued on aspirin, Plavix, and statin therapy. We will add a low-dose beta beatriz. He can go home on his usual diuretic dose. I am not going to hydrate him, even though his creatinine was elevated due to his wedge pressure being high. I do not want to necessarily give him too much diuretic, because his creatinine is 2.1. We minimize contrast with only 25 total mL, so I do not really anticipate much of a bump in his creatinine. Hopefully, he will be discharged tomorrow and we can follow up in the outpatient setting for anticipated computed tomography angiography of the chest for TAVR workup. MD RISHI Esquivel/brennen , 11:54 AM , 12:08 PM
[2018-03-27] MEDS ORDERED: Atropine Inj 1 MG/10 ML Syringe ONE (15:58)
[2018-03-28 00:52] LABS: Hematocrit 29.4 % (39.0-51.0); Hemoglobin 9.7 gm/dL (13.0-17.0)
[2018-03-28] MEDS ORDERED: Sodium Chlor 0.9% Inj 500 ML IV.SIG ONE (01:00)
[2018-03-28] MEDS ORDERED: Sod Chloride 0.9% Inj 1,000 ML IV.SIG SCH (01:45)
[2018-03-28 05:33] LABS: Baso # (Auto) 0.1 th/mm3 (0.0-0.2); Baso % (Auto) 0.7 % (0.0-2.0); Eos # (Auto) 0.2 th/mm3 (0.0-0.4); Eos % (Auto) 2.2 % (0.0-4.0); Hemoglobin 9.2 gm/dL (13.0-17.0); Lymph # (Auto) 0.9 th/mm3 (1.0-4.8); Lymph % (Auto) 9.7 % (9.0-44.0); Mean Corpuscular Hemoglobin 30.6 pg (27.0-34.0); Mean Corpuscular Volume 89.9 fL (80.0-100.0); Mean Platelet Volume 9.9 fL (7.0-11.0); Mono # (Auto) 0.8 th/mm3 (0.0-0.9); Mono % (Auto) 8.5 % (0.0-8.0); Neut # (Auto) 7.1 th/mm3 (1.8-7.7); Neut % (Auto) 78.9 % (16.0-70.0); Platelet Count 129 th/mm3 (150-450); Red Blood Count 3.01 mil/mm3 (4.50-5.90); Red Cell Distribution Width 14.7 % (11.6-17.2)
[2018-03-28 05:54] LABS: Calcium 7.5 mg/dL (8.5-10.1); Carbon Dioxide 25.1 meq/L (21.0-32.0); Chol/HDL Ratio 2.11 Ratio; HDL Cholesterol 37.3 mg/dL (40.0-60.0)
[2018-03-28] MEDS: Ferrous Sulfate 325 MG Tablet PO SCH ×2 (08:16→08:17)
[2018-03-28 09:19] VITALS: RESP 18; O2SAT 99
--- NOTE | 2018-03-28 10:40 | P.PNIM ---
Subjective Interval history: Pt has NO new complaints. Pt denies chest pain, SOB, n/v, or diaphoresis. Pt is tolerating PO intake without n/v/d. Physical Exam Vital signs: 03/28/18 07:00 03/28/18 08:00 03/28/18 09:00 Temperature 98.3 F Pulse Rate 82 77 75 Respiratory Rate 18 Blood Pressure 112/68 Pulse Oximetry 99 Narrative: GENERAL: This is a well-nourished, well-developed patient, in no apparent distress. CARDIOVASCULAR: Regular rate and rhythm without murmurs, gallops, or rubs. RESPIRATORY: Clear to auscultation. Breath sounds equal bilaterally. No wheezes , rales, or rhonchi. GASTROINTESTINAL: Abdomen soft, non-tender, nondistended. Normal active bowel sounds MUSCULOSKELETAL: Extremities without clubbing, cyanosis, or edema. NEURO: Alert & Oriented x4 to person, place, time, situation. Moves all ext x4 Results - Labs CBC & Chem 7: 03/28/18 04:44 03/28/18 04:44 - Procedures [facility] (03/27/18) performed by Dr. Yon Parks 1. Two-vessel branch coronary artery disease. 2. Successful percutaneous intervention with bare-metal stents of the first obtuse marginal branch. Medical management of small diagonal branch. 3. Moderate to severe pulmonary hypertension. 4. Low-normal cardiac output index. 5. Elevated left-sided filling pressures. Assessment and Plan - Assessment (1) CAD (coronary artery disease), [place] coronary artery Code(s): I25.10 - Atherosclerotic heart disease of [place] coronary artery without angina pectoris Status: Acute Plan: - Pt has severe aortic valve stenosis and was admitted for TAVR w/u - h/o CKD, RA - clinically pt has had worsening SOB and cough - Echocardiogram (03/27/18) - EF 25-30% - severe aortic valve stenosis - diffuse calcification of the aortic valve - [facility] (03/27/18) - 2 vessel branch CAD - first obtuse marginal branch - Consultation (03/27/18) by [facility] Dr. Meliton Reddy recommending TAVR - coreg, lipitor, ASA, plavix - Case d/w Dr. Ball (03/27/18) - Discharge to home after review of case by Cardiology, Dr. Ball - f/u with Dr. Parks in 1 week. (2) Severe aortic valve stenosis Code(s): I35.0 - Nonrheumatic aortic (valve) stenosis Status: Acute (3) Cardiomyopathy Code(s): I42.9 - Cardiomyopathy, unspecified Status: Acute
[2018-03-28 11:24] VITALS: BP 91/58; TEMP 98.4
--- NOTE | 2018-03-28 13:10 | P.PNCA ---
Subjective Interval history: No new event over night No arrhythmia, no chest pain Physical Exam Vital signs: Vital Signs 03/27/18 15:00 03/27/18 19:00 03/27/18 23:00 Temperature 98.3 F 98.2 F 98 F Pulse Rate 71 82 74 Respiratory Rate 18 16 16 Blood Pressure 123/74 97/58 L 85/53 L Pulse Oximetry 99 03/28/18 01:22 03/28/18 03:00 03/28/18 04:00 Temperature 98 F Pulse Rate 78 75 Respiratory Rate 16 Blood Pressure 94/55 L 99/58 L Pulse Oximetry 100 03/28/18 05:00 03/28/18 06:00 03/28/18 07:00 Temperature 98.3 F Pulse Rate 78 78 82 Respiratory Rate 18 Blood Pressure 112/68 Pulse Oximetry 99 03/28/18 08:00 03/28/18 09:00 03/28/18 10:00 Temperature Pulse Rate 77 75 78 Respiratory Rate Blood Pressure Pulse Oximetry 03/28/18 11:00 03/28/18 12:00 Temperature 98.4 F Pulse Rate 78 88 Respiratory Rate 18 Blood Pressure 91/58 L Pulse Oximetry 99 Intake & Output 03/27/18 03/28/18 03/28/18 18:59 06:59 18:59 Intake Total 240 / 240 1380 / 1380 1000 / 1000 Output Total 0 / 0 500 / 500 Balance 240 / 240 880 / 880 1000 / 1000 Weight 108 kg 111.6 kg Intake: IV 900 / 900 1000 / 1000 NS Inj 1,000 ML @ 100 mls/hr IV 1000 / 1000 .SIG .Q10H [facility] Rx#:[id number] NS Inj 500 ML @ As Directed IV. 500 / 500 SIG BOLUS ONE Rx#:[id number] Oral 240 / 240 480 / 480 Output: Urine 0 / 0 500 / 500 Other: Weight On Admission 108 kg - Constitutional no acute distress - Routine HEENT Exam Head: Present: normocephalic, atraumatic ENT: Present: mucous membranes moist - Routine Neck Exam Present: supple, full ROM, JVD - Routine Respiratory Exam Present: CTA bilaterally - Routine Cardiovascular Exam Present: RRR, S1, S2, murmur (2/6 RUSB systolic murmur) - Routine Abdominal Exam Present: soft, normoactive bowel sounds - Routine Extremities Exam Present: full ROM, normal capillary refill Comments: right groin soft, no hematoma - Routine Skin Exam Present: intact, dry - Routine Neurological Exam Present: alert, oriented X3, CN II-XII intact - Routine Psychiatric Exam Present: normal affect, normal thought process Assessment and Plan - Assessment (1) CAD (coronary artery disease), [place] coronary artery Code(s): I25.10 - Atherosclerotic heart disease of [place] coronary artery without angina pectoris Status: Acute (2) Cardiomyopathy Code(s): I42.9 - Cardiomyopathy, unspecified Status: Acute (3) Severe aortic valve stenosis Code(s): I35.0 - Nonrheumatic aortic (valve) stenosis Status: Acute - Plan Post OM PCI with BMS Will DC home on Aspirin, Plavix and statins Pending evaluation for TAVR Follow up with Dr. Parks in 1-2 weeks as arranged.
[2018-03-28 13:25] VITALS: PULSE 84
--- NOTE | 2018-03-28 15:39 | ECG ---
Date Performed: 03/27/2018 Time Performed: 07:15:48 PTAGE: 72 years EKG: Sinus tachycardia. Atrial abnormality Diffuse nonspecific ST-T change Poor initial anterior forces V1 and V2 Compared to previous tracing, the ST-T changes anterolaterally are new. Clinical co rrelation recommended. Abnormal ECG PREVIOUS TRACING : 07/24/2012 10.40 DOCTOR: Jewel Mendez Interpretating Date/Time 03/28/2018 15:38:35
--- NOTE | 2018-03-28 15:40 | ECG ---
Date Performed: 03/27/2018 Time Performed: 12:01:36 PTAGE: 72 years EKG: Sinus rhythm Anterolateral ST-T changes may be due to myocardial ischemia Poor initial anterior forces V1 and V2 Compared to previous tracing, heart rate is slower, otherwise no significant change. Abnormal ECG PREVIOUS TRACING : 03/27/2018 07.15 DOCTOR: Jewel Mendez Interpretating Date/Time 03/28/2018 15:39:17
--- NOTE | 2018-03-28 15:47 | ECG ---
Date Performed: 03/28/2018 Time Performed: 06:25:06 PTAGE: 72 years EKG: Sinus rhythm Extensive T wave changes may be due to myocardial ischemia Poor initial forces Since previous tracin g, no significant change noted Abnormal ECG PREVIOUS TRACING : 03/27/2018 12.01 DOCTOR: Jewel Mendez Interpretating Date/Time 03/28/2018 15:46:28
== END 2018-03-28 13:38 | disposition home or self-care (01) ==
LOC: HCAT 06:44 → HDIC 06:44 → HCIS 12:18 → HCPC 12:19
PROVIDERS: ADMIT Internal Medicine; ATTEND Internal Medicine

== ENCOUNTER 2018-06-24 05:41 | Inpatient (IN) ==
[2018-06-24] MEDS ORDERED: Sod Chloride 0.9% Inj 1,000 ML IV.CONT SCH ×2 (06:00→09:45)
[2018-06-24] MEDS ORDERED: Mupirocin 2% Nasal Oint Topical Syringe EACH NARE SCH (06:00)
[2018-06-24] MEDS ORDERED: ceFAZolin 2 GM Premix Inj 2 GM/50 ML PIGGYBACK IV.SIG SCH (06:00)
[2018-06-24] MEDS ORDERED: Aspirin 325 MG Tablet PO SCH (06:00)
[2018-06-24] MEDS ORDERED: Chlorhexidine Gluconate 2% 1 Pack (2 Cloths) TOPICAL SCH (06:00)
[2018-06-24] MEDS ORDERED: Metoprolol Tartrate 25 MG Tablet PO ONE (06:07)
[2018-06-24] MEDS ORDERED: Chlorhexidine Gluconate 2% 1 Pack (2 Cloths) TOPICAL ONE (06:07)
[2018-06-24] MEDS ORDERED: Heparin 10,000 UNITS/10 ML Vial (for IV use) ONE (06:30)
[2018-06-24] MEDS ORDERED: Protamine Sulfate Inj 50 MG/5 ML Vial ONE ×2 (06:30→08:37)
[2018-06-24] MEDS ORDERED: Sodium Chlor 0.9% Inj 500 ML IV.SIG SCH (07:00)
--- NOTE | 2018-06-24 07:25 | P.HPCA ---
History of Present Illness Service: Cardiology Primary Care Physician: Uziel Dye MD Chief Complaint: Severe aortic valve stenosis History of Present Illness: This is a 72-year-old male with history of chronic kidney disease, rheumatoid arthritis, and severe aortic valve stenosis who presents with symptoms of progressive exertional dyspnea. Patient was evaluated in the outpatient setting with transthoracic echocardiogram which revealed severe aortic valve stenosis. Patient underwent preprocedural cardiac catheterization and percutaneous coronary intervention with bare-metal stent to the obtuse marginal branch. In the preoperative evaluation patient was found to have poor dentition had 23 teeth removed. Patient was also found on transthoracic echocardiogram to have a nonischemic cardiomyopathy with severely reduced left ventricular systolic function ejection fraction between 25 and 30%. Patient was evaluated by cardiothoracic surgery and felt to be intermediate to high surgical mortality risk and was referred for consideration of transcatheter valve replacement. Patient is now here for scheduled elective procedure. - Diagnosis (1) Severe aortic valve stenosis (2) Cardiomyopathy (3) CAD (coronary artery disease), [place] coronary artery Inpatient Certification: I certify that the inpatient services were ordered in accordance with Medicare regulations governing the order. This includes certification that hospital inpatient services are reasonable and necessary and in the case of services not specified as inpatient-only under 42 CFR 419.22(n), that they are appropriately provided as inpatient services in accordance to with the 2-midnight benchmark under 43 CFR 412.3(e) Estimated Total Length of Stay (Days): 3 Plans for Post Hospital Care: Home Review of Systems All other systems reviewed negative except as stated in HPI [facility] - History History Provided By: Patient - Medical History Medical History: Medical History (Last Updated 03/27/18 @ 12:20 by Meliton Reddy MD) Anemia Anxiety Aortic stenosis CHF (congestive heart failure) Cardiomyopathy GERD (gastroesophageal reflux disease) HLD (hyperlipidemia) HTN (hypertension) History of type 2 diabetes mellitus Obesity (BMI 30-39.9) Obstructive sleep apnea Prostate CA Rheumatoid arthritis SOB (shortness of breath) - Tobacco History Second Hand Smoke Exposure: No Smoking Status: Former smoker - Alcohol History How Often Do You Have a Drink Containing Alcohol: Never Medications and Allergies Active Medications: Active Medications Aspirin (Aspirin) 325 mg PO [employer] [facility] Stop: 06/27/18 05:49 Chlorhexidine Gluconate (Chlorhexidine 2% Cloth) 3 pack TOPICAL [employer] [facility] Stop: 06/27/18 05:49 Sodium Chloride (Ns Inj) 1,000 mls @ 125 mls/hr IV.CONT .Q8H [facility] Cefazolin Sodium/Dextrose (Ancef 2 Gm Premix Inj) 2 gm in 50 mls @ 100 mls/hr IV.SIG ONCE [facility] Stop: 06/27/18 05:49 Lactated Ringer's (Lr 1000 Ml Inj) 1,000 mls @ 30 mls/hr IV.SIG .Q24H [facility] Stop: 06/25/18 06:14 Sodium Chloride (Ns Inj) 500 mls @ 30 mls/hr IV.SIG .Q10H [facility] Mupirocin (Bactroban 2% Nasal Oint) 1 applicatio EACH NARE [employer] [facility] Stop: 06/27/18 05:49 Povidone Iodine (Betadine 5% Antisepsis Kit) 1 applicatio [employer]ICAL [employer] [facility] Stop: 06/27/18 05:49 Allergies Allergy/AdvReac Type Severity Reaction Status Date / Time ciprofloxacin AdvReac Nausea Verified 03/27/18 08:06 Home Medications Medication Instructions Recorded Confirmed Type aspirin [Aspir-81] 81 mg PO DAILY 03/27/18 03/27/18 History cholecalciferol (vitamin D3) 2,000 unit PO TID 03/27/18 03/27/18 History [Vitamin D3] cyanocobalamin (vitamin B-12) 1,000 mcg PO DAILY 03/27/18 03/27/18 History [Vitamin B-12] febuxostat [Uloric] 40 mg PO DAILY 03/27/18 03/27/18 History furosemide 20 mg PO DAILY 03/27/18 03/27/18 History leflunomide 10 mg PO DAILY 03/27/18 03/27/18 History pyridoxine (vitamin B6) [Vitamin 100 mg PO BID 03/27/18 03/27/18 History B-6] rosuvastatin 5 mg PO DAILY 03/27/18 03/27/18 History sodium bicarbonate 650 mg PO Q4-6H 03/27/18 03/27/18 History vit C-vit H-[id number]-ndr-om-3 1 cap PO DAILY 03/27/18 03/27/18 History [Ocuvite] Exam - Constitutional no acute distress - Routine HEENT Exam Head: Present: normocephalic Eye: Present: EOMI, PERRL ENT: Present: mucous membranes moist - Routine Neck Exam Absent: JVD - Routine Respiratory Exam Present: CTA bilaterally - Routine Cardiovascular Exam Present: RRR, murmur - Routine Abdominal Exam Present: soft, normoactive bowel sounds - Routine Extremities Exam Present: edema - Routine Neurological Exam Present: alert, oriented X3, CN II-XII intact. Absent: sensory deficit, motor deficit EKG interpretations - Dysrhythmias Sinus rhythms and dysrhythmias: sinus rhythm - Blocks, axis, hypertrophy, ST abn Repolarization changes or abnormalities: nonspecific abnormality, ST segment, and/or T wave Caprini VTE Risk Assessment Caprini VTE Risk Assessment: Moderate/High Risk (score >= 2) Caprini Risk Assessment Model: Point Value = 1 Point Value = 2 Point Value = 3 Point Value = 5 Age 41-60 Minor surgery BMI > 25 kg/m2 Swollen legs Varicose veins or History of unexplained or recurrent spontaneous Oral contraceptives or hormone replacement Sepsis (< 1 month) Serious lung disease, including pneumonia (< 1 month) Abnormal pulmonary function Acute myocardial infarction Congestive heart failure (< 1 month) History of inflammatory bowel disease Medical patient at bed rest Age 61-74 Arthroscopic surgery Major open surgery (> 45 min) Laparoscopic surgery (> 45 min) Malignancy Confined to bed (> 72 hours) Immobilizing plaster cast Central venous access Age >= 75 History of VTE Family history of VTE Factor V Leiden Prothrombin [id number] Lupus anticoagulant Anticardiolipin antibodies Elevated serum homocysteine Heparin-induced thrombocytopenia Other congenital or acquired thrombophilia Stroke (< 1 month) Elective arthroplasty Hip, pelvis, or leg fracture Acute spinal cord injury (< 1 month) Prophylaxis Regimen: Total Risk Factor Score Risk Level Prophylaxis Regimen 0-1 Low Early ambulation 2 Moderate Order ONE of the following: *Sequential Compression Device (SCD) *Heparin 5000 units SQ BID 3-4 Higher Order ONE of the following medications: *Heparin 5000 units SQ TID *Enoxaparin/Lovenox 40 mg SQ daily (WT < 150 kg, CrCl > 30 mL/min) *Enoxaparin/Lovenox 30 mg SQ daily (WT < 150 kg, CrCl > 10-29 mL/min) *Enoxaparin/Lovenox 30 mg SQ BID (WT < 150 kg, CrCl > 30 mL/min) AND/OR *Sequential Compression Device (SCD) 5 or more Highest Order ONE of the following medications: *Heparin 5000 units SQ TID (Preferred with Epidurals) *Enoxaparin/Lovenox 40 mg SQ daily (WT < 150 kg, CrCl > 30 mL/min) *Enoxaparin/Lovenox 30 mg SQ daily (WT < 150 kg, CrCl > 10-29 mL/min) *Enoxaparin/Lovenox 30 mg SQ BID (WT < 150 kg, CrCl > 30 mL/min) AND *Sequential Compression Device (SCD) Assessment and Plan - Assessment (1) Severe aortic valve stenosis Code(s): I35.0 - Nonrheumatic aortic (valve) stenosis Status: Acute Plan: This is a 72-year-old male with multiple comorbidities and intermediate to high risk for surgical aortic valve replacement referred for consideration of transcatheter aortic valve replacement. Preoperative workup: STS score 7.6% [place] [employer] functional class III symptoms BMI 34.2 2/4 frailty score Electrocardiogram shows normal sinus rhythm with T wave abnormality in anterolateral leads Coronary function testing from March 27, 2018 shows an FEV1 of 1.3 consistent with severe restrictive ventilatory defect of the small airways Dobutamine stress echocardiogram from March 27, 2018 shows an ejection fraction of 25-30% with a mean gradient of 42 mmHg and calculated aortic valve area 0.56 cm square with administration of dobutamine 10 mcg. There is mild tricuspid, trace mitral, and trace aortic insufficiency. Cardiac catheterization March 27, 2018 shows severe small diagonal branch disease and first obtuse marginal branch stenosis status post bare-metal stent placement Computed tomography analysis from April 17, 2018 shows a short annulus diameter 25.5 mm, long annulus diameter 31.5 mm, perimeter of 89.7 mm, sinus of Valsalva diameter 34.2 mm, sinotubular junction diameter 31.1 mm, implant angle left anterior oblique 7 and cranial 0 degrees with a root angle 49 degrees, minimal luminal diameter in the right iliac system 9.8 mm in left iliac systems 9.8 mm. Risks, benefits, and alternatives were discussed with the patient. Patient understood and consented to proceed. Patient has severe symptomatic aortic valve stenosis with [place] [employer] functional class III symptoms and intermediate to high surgical operative risk. Patient was evaluated by 2 cardiothoracic surgeons and felt to be better suited for transcatheter aortic valve replacement. We will plan for placement of a bioprosthetic Medtronic evolute R 34 mm transcatheter aortic valve via right common femoral arterial approach. (2) Cardiomyopathy Code(s): I42.9 - Cardiomyopathy, unspecified Status: Acute (3) CAD (coronary artery disease), [place] coronary artery Code(s): I25.10 - Atherosclerotic heart disease of [place] coronary artery without angina pectoris Status: Acute
--- NOTE | 2018-06-24 07:43 | ECG ---
Date Performed: 06/24/2018 Time Performed: 06:10:16 PTAGE: 73 years EKG: Sinus rhythm . Poor R wave progression - probable normal variant Lateral ST-T changes may be due to myocardial isc hemia Abnormal ECG PREVIOUS TRACING : 03/28/2018 06.25 DOCTOR: Yon Parks Interpretating Date/Time 06/24/2018 07:41:42
[2018-06-24] MEDS ORDERED: Iohexol Inj 350 MG/ML 100 ML Bottle (for RAD Diag) IVCONTRAST ONE (09:16)
--- NOTE | 2018-06-24 09:23 | P.OP ---
- Preoperative Diagnosis (1) Combined systolic and diastolic congestive heart failure, NYHA class 3 (2) Severe aortic valve stenosis (3) Cardiomyopathy (4) CAD (coronary artery disease), circle coronary artery Postoperative Diagnosis: same Date of procedure: 06/24/18 Procedure: Transcatheter aortic valve replacement with a 34 Evolut R Post-dilation x 3 with a 30 Zmed balloon Percutaneous bilateral femoral artery access with Perclose closure on the right Percutaneous left femoral venous access Fluoroscopy Aortography Implants: 34 Evolut R tissue valve Anesthesia: GETA Surgeon: Usha France MD Co-surgeon - Minor Pathology: none sent Operation and Findings: The risks, benefits, complications, treatment options, and expected outcomes were discussed with the patient. The possibilities of reaction to medication, pulmonary aspiration, perforation of viscus, bleeding, recurrent infection, the need for additional procedures, failure to diagnose a condition, and creating a complication requiring transfusion or operation were discussed with the patient. The patient concurred with the proposed plan, giving informed consent. The site of surgery properly noted/marked. The patient was taken to hybrid operating room, identified as Garry Zaldivar and the procedure verified as Transcatheter Aortic Valve Replacement. A Time Out was held and the above information confirmed. Standard monitoring lines and Headley catheter were placed. General anesthesia was induced. The patient was prepped and draped in a sterile fashion. Initially, left femoral arterial and venous access was acquired using a Seldinger percutaneous technique. The details of this procedure were dictated under separate note by cardiology. Once a pigtail was positioned in the aortic annulus and a temporary transvenous pacemaker wire was placed in the right ventricular apex and tested, the right femoral artery was accessed using a needle followed by a guidewire under fluoroscopic guidance. The patient was heparinized and 2 Perclose devices deployed for later closure. Serial dilators were used to dilate the right femoral artery to 16 [place] caliber. The Medtronic delivery system and valve were then inserted up to the distal abdominal aorta. Arch aortography was performed to define the implant view. A 34 Evolut R corevalve was then positioned in the annulus and deployed with the patient being paced at 120 beats per minute. Following deployment, the valve apparatus was withdrawn and arch aortography and RAFIA were performed to assess the valve. The valve had a mild to moderate perivalvular leak. A balloon aortic valvuloplasty was then performed using a 30 x 4 Zmed balloon with the patient being paced at 160 beats per minute on 3 occasions. The PVL was improved following postdilation, but there was still a mild PVL. Gradients were then measured and the sheath was removed. Perclose sutures were secured with good hemostasis. Protamine was administered. Sterile dressings were placed. At the end of the operation, all sponge, instruments, and needle counts were correct. The patient was transferred to the CVICU in stable condition. Findings: Mild PVL after deployment and postdilation Complications: none
[2018-06-24] MEDS ORDERED: Atropine Inj 1 MG/ML Vial IV.PUSH PRN (09:43)
[2018-06-24] MEDS ORDERED: hydrALAZINE HCl Inj 20 MG/ML Vial IV.PUSH PRN (09:43)
[2018-06-24] MEDS ORDERED: Morphine Sulfate Inj 2 MG/ML Vial IV.PUSH PRN (09:43)
[2018-06-24] MEDS ORDERED: Benzocaine/Menthol 15 MG/3.6 MG SF Lozenge BUCCAL PRN (09:43)
[2018-06-24] MEDS ORDERED: Acetaminophen 325 MG Tablet PO PRN (09:43)
[2018-06-24] MEDS ORDERED: fentaNYL Citrate Inj 100 MCG/2 ML Ampul ONE (09:57)
--- NOTE | 2018-06-24 10:22 | P.OP ---
- Preoperative Diagnosis (1) Severe aortic valve stenosis Date of procedure: 06/24/18 Procedure: Transcatheter aortic valve replacement Implants: Medtronic 34 mm Evolut R transcatheter aortic valve Surgeon: Yon Parks MD Automotive Salesperson: Usha France Operation and Findings: sand system operator: Yon Parsk MD Primary Surgeon: Usha France MD Procedures performed: 1. Fluoroscopy with interpretation 2. Left heart catheterization 3. Ascending aortography 4. Temporary transvenous pacemaker placement 5. Transesophageal echocardiogram 6. Aortic balloon valvuloplasty 7. Transcatheter aortic valve replacement with Medtronic Evolut R 34 mm bioprosthetic valve Methods: Risks, benefits, and alternatives were discussed with the patient. Patient understood and consented to the procedure. Patient was brought into the operating room and placed on the operating table. Bilateral groins and chest were prepped and draped. Under fluoroscopic guidance the left common femoral artery was cannulated and a 5 Danish 11 cm sheath was placed without difficulty. Left femoral vein was accessed and a 5 Danish 11 cm sheath was placed without difficulty. Right common femoral artery was cannulated under fluoroscopic and angiographic guidance through using a micropuncture sheath. Angiography confirmed appropriate placement. An 8 Danish sheath was placed without difficulty. 2 Perclose devices were deployed in a pre-close manner. The 14 sheath was then advanced up over the wire through the iliac system without difficulty into the descending abdominal aorta. Temporary transvenous pacemaker placement: A 5 Danish balloontipped temporary transvenous pacemaker was advanced under fluoroscopic guidance to the right internal jugular sheath to the right ventricular apex. Appropriate pacing and capture was confirmed and utilized during the procedure for rapid ventricular pacing. Transesophageal echocardiogram: Please see detailed separate report Ascending aortography: Ascending aortography was performed using an 5 Danish angled pigtail catheter advanced to the left common femoral arterial sheath to the level of the descending aorta and its the right coronary cusp. Ascending aortography was performed which showed 3 leaflets and parallax view. The ascending aorta was not significantly dilated. Left heart catheterization: A 5 Danish AL-1 catheter was advanced through the right common femoral sheath to the level of the descending aorta a 0.035 inch Amplatz straight tip Super Stiff wire was then advanced across the aortic valve with some difficulty. The AL-1 catheter was advanced into the left ventricle. A 260 cm 0.035 inch standard J-wire was then advanced to the left ventricular apex and the AL-1 catheter removed. A 5 Danish angled pigtail catheter was then advanced over the J-wire into the left ventricular apex and the J-wire removed. A 0.035 inch 260 cm Medtronic Confida wire was then advanced to the left ventricular apex through the pigtail catheter, and the pigtail catheter removed. Transcatheter aortic valve replacement: A 34 mm Medtronic Evolut R valve was advanced through the right common femoral sheath to the level of the descending aorta. The device was then advanced up and over the arch to the level of the ascending aorta and across the aortic valve. Appropriate positioning was confirmed with a sending aortography and fluoroscopy. Under ventricular pacing at rate of 120 bpm, the transcatheter aortic valve was slowly deployed. Immediate post deployment transesophageal echocardiogram revealed appropriate positioning. There was a moderate perivalvular leak without pericardial effusion. Patient tolerated the procedure with good hemodynamic stability. Aortic balloon valvuloplasty: A valvuloplasty balloon was prepped. The balloon was then advanced over the Medtronic Confida wire to the level of the ascending aorta and across the aortic valve. Under rapid ventricular pacing at 180 bpm the aortic valvuloplasty balloon was deployed. Repeat transesophageal echocardiogram post deployment revealed no pericardial effusion with mild dev-valvular leak. Patient remained hemodynamically stable. The delivery sheath was then removed. The right common femoral arterial sheath was removed and 2 Perclose devices deployed with good hemostasis. The left common femoral artery and venous sheaths were also removed and 2 Vascade closure devices were deployed with good hemostasis. Post valve deployment intraoperative transesophageal echocardiogram findings: 1. Post aortic valve area was 3.0 cm 2. Post implant mean aortic valve gradient was 4 mmHg 3. Post implant peak velocity was 1.44 m/seconds 4. Aortic valve insufficiency showed mild perivalvular leak Conclusions: 1. Severe [place] aortic valve stenosis 2. Successful transcatheter aortic valve replacement with a 34 mm Medtronic Evolut R bioprosthetic valve 3. Successful aortic balloon valvuloplasty Plan: We will monitor the patient closely for any immediate postprocedural complications. We will consult electrophysiology for evaluation of postprocedure heart rhythm. We will obtain a limited transthoracic echocardiogram. We will initiate antiplatelet therapy with aspirin and Plavix. Patient be transferred to the cardiovascular intensive care unit for further monitoring
--- NOTE | 2018-06-24 12:31 | ECG ---
Date Performed: 06/24/2018 Time Performed: 10:03:44 PTAGE: 73 years EKG: Sinus rhythm with PVC(s). Prolonged QT interval Extensive T wave changes may be due to myocardial ischemia Abnorm al ECG PREVIOUS TRACING : 06/24/2018 06.10 DOCTOR: Yon Parks Interpretating Date/Time 06/24/2018 12:30:15
[2018-06-24] MEDS ORDERED: Iohexol 350 MG/ML 100 ML Vial (for Cath Lab) IVCONTRAST ONE (12:44)
[2018-06-24] MEDS ORDERED: Gelatin 12 MM/7 MM Topical Foam ONE (12:50)
--- NOTE | 2018-06-24 12:52 | ECHRPT ---
Indication: CONCLUSIONS Mildly dilated left ventricle. Mild concentric left ventricular hypertrophy. The left ventricular systolic function is severely reduced with an estimated ejection fraction in th e range of 25-30%. Severe aortic valve stenosis. Status post transcatheter aortic valve replacement with mild perivalvular leak. BP: / HR: Rhythm: Technical Quality: Medications Complications Proc. Components FINDINGS LEFT VENTRICLE Mildly dilated left ventricle. Mild concentric left ventricular hypertrophy. The left ventricular systolic function is severely reduced with an estimated ejection fraction in th e range of 25-30%. RIGHT VENTRICLE Normal right ventricular size and systolic function. LEFT ATRIUM The left atrial size is mildly dilated. RIGHT ATRIUM The right atrial size is normal. ATRIAL SEPTUM Normal atrial septal thickness without atrial level shunting by limited color doppler interrogation. AORTA The aortic root and proximal ascending aorta are normal in size on limited imaging. MITRAL VALVE [id number] mitral valve regurgitation. AORTIC VALVE Trileaflet aortic valve. Aortic valve sclerosis is present. Diffuse calcification of the aortic valve. Mild aortic valve regurgitation. Severe aortic valve stenosis. Status post transcatheter aortic valve replacement with mild perivalvular leak. TRICUSPID VALVE Structurally normal tricuspid valve. No tricuspid valve stenosis or regurgitation. VESSELS The inferior vena cava is normal in size. PULMONARY VALVE The pulmonary valve is not well visualized. PERICADIUM No pericardial effusion. Yon Parks MD, FACC (Electronically Signed) Final Date:24 June 2018 12:51
[2018-06-25 06:04] LABS: Hematocrit 25.7 % (39.0-51.0); Hemoglobin 8.7 gm/dL (13.0-17.0); Mean Corpuscular Hemoglobin 30.6 pg (27.0-34.0); Mean Corpuscular Volume 90.1 fL (80.0-100.0); Mean Platelet Volume 9.5 fL (7.0-11.0); Platelet Count 137 th/mm3 (150-450); Red Blood Count 2.86 mil/mm3 (4.50-5.90); Red Cell Distribution Width 15.5 % (11.6-17.2); White Blood Count 8.9 th/mm3 (4.0-11.0)
[2018-06-25 06:31] LABS: Albumin 2.9 g/dL (3.4-5.0); Anion Gap 7 meq/L (5-15); Aspartate Aminotransferase 21 U/L (15-37); Blood Urea Nitrogen 31 mg/dL (7-18); Calcium 8.4 mg/dL (8.5-10.1); Carbon Dioxide 25.9 meq/L (21.0-32.0); Chloride 105 meq/L (98-107); Glomerular Filtration Rate 37 mL/min (>89); Glucose,Random 99 mg/dL (74-106); Potassium 4.2 meq/L (3.5-5.1); Sodium 138 meq/L (136-145)
[2018-06-25 06:35] LABS: Alanine Aminotransferase 17 U/L (12-78); Alkaline Phosphatase 82 U/L (45-117); Total Protein 6.3 g/dL (6.4-8.2)
--- NOTE | 2018-06-25 09:15 | P.DS ---
Date of admission: 06/24/18 05:41 Primary care physician: Uziel Dye MD Anticipated date of discharge: 06/25/18 Brief History from admission: This is a 72-year-old male with history of chronic kidney disease, rheumatoid arthritis, and severe aortic valve stenosis who presents with symptoms of progressive exertional dyspnea. Patient was evaluated in the outpatient setting with transthoracic echocardiogram which revealed severe aortic valve stenosis. Patient underwent preprocedural cardiac catheterization and percutaneous coronary intervention with bare-metal stent to the obtuse marginal branch. In the preoperative evaluation patient was found to have poor dentition had 23 teeth removed. Patient was also found on transthoracic echocardiogram to have a nonischemic cardiomyopathy with severely reduced left ventricular systolic function ejection fraction between 25 and 30%. Patient was evaluated by cardiothoracic surgery and felt to be intermediate to high surgical mortality risk and was referred for consideration of transcatheter valve replacement. Patient is now here for scheduled elective procedure. DS: Diagnosis - Discharge Diagnosis (1) Severe aortic valve stenosis Status: Acute (2) Cardiomyopathy Status: Acute (3) CAD (coronary artery disease), [place] coronary artery Status: Acute DS: Summary Hospital Course: . - Time Spent with Patient Total time spent providing and/or coordinating discharge services: Less than 30 minutes Exam Vital signs: Vital Signs 06/24/18 09:43 06/24/18 14:00 06/24/18 15:00 Temperature 97.4 F L 97.8 F 98.0 F Pulse Rate 69 71 79 Respiratory Rate 16 18 18 Blood Pressure 127/48 L 126/57 L 126/57 L Pulse Oximetry 100 97 97 06/24/18 16:00 06/24/18 17:00 06/24/18 18:00 Temperature Pulse Rate 74 74 78 Respiratory Rate Blood Pressure Pulse Oximetry 06/24/18 19:00 06/24/18 20:00 06/24/18 23:00 Temperature 99.3 F 98.6 F Pulse Rate 71 79 79 Respiratory Rate 18 16 Blood Pressure 128/58 L 115/55 L Pulse Oximetry 99 99 06/25/18 00:00 06/25/18 01:00 06/25/18 02:00 Temperature Pulse Rate 79 79 68 Respiratory Rate Blood Pressure Pulse Oximetry 06/25/18 03:00 06/25/18 04:00 06/25/18 05:00 Temperature 98 F Pulse Rate 74 96 H 96 H Respiratory Rate 16 Blood Pressure 116/58 L Pulse Oximetry 99 06/25/18 06:00 Temperature Pulse Rate 98 H Respiratory Rate Blood Pressure Pulse Oximetry Intake & Output 06/24/18 06/25/18 06/25/18 18:59 06:59 18:59 Intake Total 1290 / 1290 480 / 480 Output Total 950 / 950 30 / 30 Balance 340 / 340 450 / 450 Weight 102.4 kg Intake: IV 50 / 50 Ancef 2 GM Premix Inj 2 gm In 50 / 50 50 ml @ 100 mls/hr IV.SIG ONCE GRZEGORZ Rx#:[id number] Oral 240 / 240 480 / 480 Anesthesia Amount 1000 / 1000 Output: Urine 30 / 30 Estimated Blood Loss 200 / 200 Urine Amount (Catheter) 750 / 750 Indwelling Temp Sensing 750 / 750 Catheter Other: # Voids 1 Weight On Admission 102.4 kg - Constitutional no acute distress - Routine HEENT Exam Head: Present: normocephalic Eye: Present: EOMI, PERRL ENT: Present: mucous membranes moist - Routine Neck Exam Absent: JVD - Routine Respiratory Exam Present: CTA bilaterally - Routine Cardiovascular Exam Present: RRR. Absent: murmur - Routine Abdominal Exam Present: soft, normoactive bowel sounds - Routine Extremities Exam Absent: edema - Routine Neurological Exam Present: oriented X3, CN II-XII intact. Absent: sensory deficit, motor deficit Results Procedures completed during hospitalization: Transcatheter aortic valve replacement Labs on day of discharge: Labs from last 24 hours 06/25/18 06/25/18 06/24/18 04:49 04:49 06:02 WBC 8.9 RBC 2.86 L Hgb 8.7 L Hct 25.7 L MCV 90.1 MCH 30.6 MCHC 34.0 RDW 15.5 Plt Count 137 L MPV 9.5 Sodium 138 Potassium 4.2 Chloride 105 Carbon Dioxide 25.9 Anion Gap 7 BUN 31 H Creatinine 1.79 H Estimated GFR 37 L Random Glucose 99 Calcium 8.4 L D Total Bilirubin 0.4 AST 21 ALT 17 Alkaline Phosphatase 82 Total Protein 6.3 L D Albumin 2.9 L MTS Gel Crossmatch See Detail Bld Prod Order Comment - Impressions Patient is sitting at the bedside doing very well. Right temporary transvenous pacemaker was removed yesterday through the internal jugular. He is up to a chair eating breakfast. He did have red tinged urine this morning. Likely secondary to traumatic Headley placement. We will gently hydrate him here over the course the next few hours. We will continue with ambulation. If he does well throughout today, we can discharge this afternoon. He is already on aspirin and Plavix. He can follow-up in the outpatient setting. We will get a transthoracic echocardiogram, limited today. Discharge Plan - Discharge Disposition Patient Disposition: 01 Discharge Home - Discharge Condition Condition: Good - Discharge Order Discharge Orders: Discharge Order (Routine); Ordered 06/25/18 Ordered By: Yon Parks Cardiology Clear for Discharge (Routine); Ordered 06/25/18 Ordered By: Yon Parks - Discharge Details Anticipated Discharge Date: 06/25/18 - Physicians Team Primary Care Provider: Uziel Dye Attending Provider: Yon Parks Other Providers: Michael Moffett MD ; Joe Mario MD ; Maeve Bermudez MD - Rxs /Orders / Referrals /Forms Prescriptions: Continue aspirin [Aspir-81] 81 mg Tablet,Delayed Release (Dr/Ec) 81 mg PO DAILY carvedilol [Coreg] 3.125 mg Tablet 3.125 mg PO BID Qty: 60 RF: 3 cholecalciferol (vitamin D3) [Vitamin D3] 2,000 unit Tablet 2,000 unit PO TID clopidogrel [Plavix] 75 mg Tablet 75 mg PO DAILY Qty: 30 RF: 3 cyanocobalamin (vitamin B-12) [Vitamin B-12] 1,000 mcg Tablet 1,000 mcg PO DAILY febuxostat [Uloric] 40 mg Tablet 40 mg PO DAILY ferrous sulfate [FeroSul] 325 mg (65 mg iron) Tablet 325 mg PO DAILY Qty: 30 RF: 3 furosemide 20 mg Tablet 20 mg PO DAILY leflunomide 10 mg Tablet 10 mg PO DAILY pyridoxine (vitamin B6) [Vitamin B-6] 100 mg Tablet 100 mg PO BID rosuvastatin 5 mg Tablet 5 mg PO DAILY sodium bicarbonate 650 mg Tablet 650 mg PO Q4-6H vit C-vit [id number]-[id number]-3 [Ocuvite] [id number] wy-[id number]-va-mg Capsule 1 cap PO DAILY Referrals: Uziel Dye MD [Primary Care Provider] - See Instructions - Discharge Instructions Patient Printed Instructions: Transcatheter Aortic Valve Replacement (DC) Additional Instructions: Please call your PCP and make follow up appointment for next one to two weeks. Call Juwan Mo RN Structural Kiss Machine Operator with any questions or concerns. Office will call with 30 day and 1 year echocardiogram appointments. 30 day TAVR Follow up 07/30/[address] Parks [phone] [facility] Cardiology [facility] [place] [id number] 1 year TAVR follow up 06/24/[address] Parks [phone] [facility] Cardiology [address] [place], [place] [address] [address] [address]
--- NOTE | 2018-06-25 10:04 | MB ---
cc: Maeve Bermudez MD DATE: 06/25/2018 REASON FOR CONSULTATION: Status post TAVR for possible conduction disease. HISTORY OF PRESENT ILLNESS: Mr. Zaldivar is a 73-year-old gentleman with history of aortic stenosis, coronary artery disease, cardiomyopathy, ejection fraction 20%-25% who underwent transaortic valve replacement. Postprocedure, I was consulted for evaluation and management. The chart was reviewed. The patient was evaluated. ALLERGIES: CIPROFLOXACIN. SOCIAL HISTORY: The gentleman currently denies smoking and drinking. He used to smoke in the past. FAMILY HISTORY: Noncontributory to his current medical condition. MEDICATIONS: He is on aspirin. He is on Plavix. He is on ferrous sulfate, Lopressor p.r.n. REVIEW OF SYSTEMS: Currently, the patient with no chest pain, no chest discomfort, no fever. PHYSICAL EXAMINATION: GENERAL: Alert, fully oriented. VITAL SIGNS: His blood pressure on evaluation 128/58, pulse 71, respiratory rate 18. LUNGS: Ventilated. CARDIOVASCULAR: S1, S2. No gallop. No murmur. ABDOMEN: Soft. No mass. EXTREMITIES: No edema. DIAGNOSTIC DATA: Electrocardiogram preprocedure indicates sinus rhythm, poor R-wave progression, some lateral ST changes. Postprocedure electrocardiogram indicates again sinus rhythm, some anterolateral ST changes. Labs: There are no new ones available. ASSESSMENT AND RECOMMENDATIONS: Mr. Zaldivar is stable. He is eating, ambulating. There is no significant EKG change between pre and post transcatheter aortic valve replacement. No shortness of breath. No need for pacing support. A temporary pacer was already removed. At this point, my recommendation is to continue with current management. The patient is going to need RICARDO inhibitor prior to discharge. Case extensively discussed with him. I will follow him on a p.r.n. basis. Okay to discharge in the morning if it is okay with the managing team. Maeve Bermudez MD HS/rs , 09:25 AM , 09:32 AM
[2018-06-25] MEDS: Ferrous Sulfate 325 MG Tablet PO SCH (10:43)
--- NOTE | 2018-06-25 10:47 | ECHRPT ---
Indication: HEART FAILURE CONCLUSIONS The left ventricular systolic function is low normal with an estimated ejection fraction in the rang e of 50- 55%. Normal left ventricular size. Wall thickness is normal. No regional wall motion abnormalities are present. The aortic valve is not well visualized. Trace to mild perivalvular leak No aortic valve stenosis. Aortic valve area is 1.5 cm. Aortic valve mean gradient is 9 mmHg. BP: / HR: Rhythm: MEASUREMENTS (Male / Female) Normal Values Technical Quality: 2D ECHO LV Diastolic Diameter PLAX 5.8 cm 4.2 - 5.9 / 3.9 - 5.3 cm LV Systolic Diameter PLAX 4.2 cm IVS Diastolic Thickness 1.1 cm 0.6 - 1.0 / 0.6 - 0.9 cm LVPW Diastolic Thickness 1.1 cm 0.6 - 1.0 / 0.6 - 0.9 cm LV Relative Wall Thickness 0.4 LVOT Diameter 1.9 cm LV Ejection Fraction MOD 4C 59.4 % LV Ejection Fraction 4C AL 62.7 % M-MODE LV Diastolic Diameter MM 5.7 cm 4.2 - 5.9 / 3.9 - 5.3 cm LV Systolic Diameter MM 4.1 cm LV Ejection Fraction MM Teich 53.6 % IVS Diastolic Thickness MM 1.1 cm 0.6 - 1.0 / 0.6 - 0.9 cm LVPW Diastolic Thickness MM 1.1 cm 0.6 - 1.0 / 0.6 - 0.9 cm LV Relative Wall Thickness MM 0.4 0.24 - 0.42 / 0.22 - 0.42 Aortic Root Diameter MM 2.3 cm AV Cusp Separation MM 1.0 cm DOPPLER AV Peak Velocity 187.0 cm/s AV Peak Gradient 14.0 mmHg AV Mean Gradient 9.0 mmHg AV Velocity Time Integral 39.1 cm AI Peak Velocity 329.5 cm/s AI Peak Gradient 43.4 mmHg AI Pressure Half Time 602.5 ms LVOT Peak Velocity 119.0 cm/s LVOT Peak Gradient 5.7 mmHg LVOT Velocity Time Integral 21.2 cm AV Area Cont Eq vti 1.5 cm AV Area Cont Eq pk 1.8 cm FINDINGS LEFT VENTRICLE The left ventricular systolic function is low normal with an estimated ejection fraction in the rang e of 50- 55%. Normal left ventricular size. Wall thickness is normal. No regional wall motion abnormalities are present. RIGHT VENTRICLE Normal right ventricular size and systolic function. LEFT ATRIUM The left atrial size is normal. RIGHT ATRIUM The right atrial size is normal. ATRIAL SEPTUM Normal atrial septal thickness without atrial level shunting by limited color doppler interrogation. AORTA The aortic root and proximal ascending aorta are normal in size on limited imaging. MITRAL VALVE Structurally normal mitral valve. No mitral valve stenosis or regurgitation. AORTIC VALVE The aortic valve is not well visualized. Trace to mild perivalvular leak No aortic valve stenosis. Aortic valve area is 1.5 cm. Aortic valve mean gradient is 9 mmHg. TRICUSPID VALVE Structurally normal tricuspid valve. No tricuspid valve stenosis or regurgitation. PULMONARY VALVE The pulmonary valve is not well visualized. VESSELS The inferior vena cava is normal in size. PERICARDIUM No pericardial effusion. Yon Parks MD, FACC (Electronically Signed) Final Date:25 June 2018 10:46
--- NOTE | 2018-06-25 12:08 | ECG ---
Date Performed: 06/25/2018 Time Performed: 07:03:42 PTAGE: 73 years EKG: Sinus rhythm with PAC(s). Anterolateral ST-T changes may be due to myocardial ischemia Abnormal ECG Since the PREVIOUS TRACING , no significant change noted PREVIOUS TRACIN06/24/2018 10.03 DOCTOR: Joe Rodriguez Interpretating Date/Time 06/25/2018 12:07:30
[2018-06-25] MEDS ORDERED: Sodium Chloride 0.9% 2 ML Flush PRN IV.FLUSH (14:58)
[2018-06-25] MEDS ORDERED: Lidocaine 2% Jelly 5 ML Syringe OTHER ONE (15:15)
--- NOTE | 2018-06-25 17:04 | P.PNCV ---
- Note Subjective/Hospital Course: 72-year-old male with history of chronic kidney disease, rheumatoid arthritis, and severe aortic valve stenosis who presents with symptoms of progressive exertional dyspnea. Patient was evaluated in the outpatient setting with transthoracic echocardiogram which revealed severe aortic valve stenosis. Patient underwent preprocedural cardiac catheterization and percutaneous coronary intervention with bare-metal stent to the obtuse marginal branch. In the preoperative evaluation patient was found to have poor dentition had 23 teeth removed. Patient was also found on transthoracic echocardiogram to have a nonischemic cardiomyopathy with severely reduced left ventricular systolic function ejection fraction between 25 and 30%. Patient was evaluated by cardiothoracic surgery and felt to be intermediate to high surgical mortality risk and was referred for consideration of transcatheter valve replacement. Patient is now here for scheduled elective procedure. 06/24 Medtronic 34 mm Evolut R transcatheter aortic valve 06/25 Echo The left ventricular systolic function is low normal with an estimated ejection fraction in the range of 50- 55%. Normal left ventricular size. Wall thickness is normal. No regional wall motion abnormalities are present. The aortic valve is not well visualized. Trace to mild perivalvular leak No aortic valve stenosis. Aortic valve area is 1.5 cm. Aortic valve mean gradient is 9 mmHg. pt was seen and eval by quality specialist Dr Bermudez no need for pacing / recommend RICARDO at discharge pt also developed hematuria thia am Objective: Vital Signs - 24 hr 06/24/18 17:00 06/24/18 18:00 06/24/18 19:00 Temperature 99.3 F Pulse Rate 74 78 71 Respiratory Rate 18 Blood Pressure 128/58 L Pulse Oximetry 99 06/24/18 20:00 06/24/18 23:00 06/25/18 00:00 Temperature 98.6 F Pulse Rate 79 79 79 Respiratory Rate 16 Blood Pressure 115/55 L Pulse Oximetry 99 06/25/18 01:00 06/25/18 02:00 06/25/18 03:00 Temperature 98 F Pulse Rate 79 68 74 Respiratory Rate 16 Blood Pressure 116/58 L Pulse Oximetry 99 06/25/18 04:00 06/25/18 05:00 06/25/18 06:00 Temperature Pulse Rate 96 H 96 H 98 H Respiratory Rate Blood Pressure Pulse Oximetry 06/25/18 07:00 06/25/18 08:00 06/25/18 09:00 Temperature 98.6 F Pulse Rate 80 84 84 Respiratory Rate 18 Blood Pressure 121/58 L Pulse Oximetry 98 06/25/18 10:00 06/25/18 11:00 06/25/18 12:00 Temperature 98.4 F Pulse Rate 74 98 H 104 H Respiratory Rate 18 Blood Pressure 126/60 Pulse Oximetry 99 06/25/18 13:00 Temperature Pulse Rate 88 Respiratory Rate Blood Pressure Pulse Oximetry GENERAL: A&O x 3 SKIN: Warm and dry. both groin sites with dressing intact HEAD: Normocephalic. EYES: No scleral icterus. No injection or drainage. NECK: Supple, trachea midline. No JVD or lymphadenopathy. CARDIOVASCULAR: Regular rate and rhythm without murmurs, gallops, or rubs. RESPIRATORY: Breath sounds equal bilaterally. No accessory muscle use. GASTROINTESTINAL: Abdomen soft, non-tender, nondistended. MUSCULOSKELETAL: No cyanosis, or edema. BACK: Nontender without obvious deformity. No CVA tenderness. Labs: Laboratory Results - last 12 hr 06/25/18 06/25/18 04:49 04:49 WBC 8.9 RBC 2.86 L Hgb 8.7 L Hct 25.7 L MCV 90.1 MCH 30.6 MCHC 34.0 RDW 15.5 Plt Count 137 L MPV 9.5 Sodium 138 Potassium 4.2 Chloride 105 Carbon Dioxide 25.9 Anion Gap 7 BUN 31 H Creatinine 1.79 H Estimated GFR 37 L Random Glucose 99 Calcium 8.4 L D Total Bilirubin 0.4 AST 21 ALT 17 Alkaline Phosphatase 82 Total Protein 6.3 L D Albumin 2.9 L Result Diagrams: 06/25/18 04:49 06/25/18 04:49 Cardiovascular: NSR - Plan (5) S/P TAVR (transcatheter aortic valve replacement) Plan: on ASA, plavix (6) Hematuria Plan: urology consulted pt unable to void
[2018-06-25] MEDS: Sodium Chloride 0.9% 2 ML Flush BID IV.FLUSH SCH (22:23)
[2018-06-25 23:34] LABS: Bacteria,Urine Occasional /hpf; Bilirubin,Urine Negative (Negative); Clarity,Urine Cloudy (Clear); Color,Urine Red (Yellw/Straw); Glucose,Urine (UA) Negative (Negative); Leukocyte Esterase,Urine Negative (Negative); Mucus,Urine Few /lpf (Occasional); Nitrite,Urine Negative (Negative); Specific Gravity,Urine 1.014 (1.002-1.035); Squamous Epithelial Cell,Urine 1 /hpf (0-5)
[2018-06-26] MEDS: Ferrous Sulfate 325 MG Tablet PO SCH (08:44)
[2018-06-26] MEDS: Sodium Chloride 0.9% 2 ML Flush BID IV.FLUSH SCH (08:44)
[2018-06-26] MEDS ORDERED: Lisinopril 5 MG Tablet PO SCH (09:00)
--- NOTE | 2018-06-26 12:48 | P.CONURO ---
History of Present Illness Service: Urologu Consult date: 06/26/18 Requesting Physician: Yon Parks Reason for Consult: Retention Primary Care Provider: Uziel Dye MD Chief Complaint: Severe aortic valve stenosis History of Present Illness: 72-year-old male with history of chronic kidney disease, rheumatoid arthritis, and severe aortic valve stenosis who presented with symptoms of progressive exertional dyspnea. Patient was evaluated in the outpatient setting with transthoracic echocardiogram which revealed severe aortic valve stenosis. . Patient was evaluated by cardiothoracic surgery and felt to be intermediate to high surgical mortality risk and was referred for consideration of transcatheter valve replacement, which was done 2d/a. Urology consulted for post /op retention. Vitals and Labs are stable. Helton was reinserted yesterday evening. Draining well clear yellow urine. 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 He also has a h/o Kidney stones. His is Dr Charles. He denies any issues with voiding prior to this surgery Review of Systems All other systems reviewed negative except as stated in HPI [facility] - History History Provided By: Patient - Medical History Medical History: Medical History (Last Updated 03/27/18 @ 12:20 by Meliton Reddy MD) Anemia Anxiety Aortic stenosis CHF (congestive heart failure) Cardiomyopathy GERD (gastroesophageal reflux disease) HLD (hyperlipidemia) HTN (hypertension) History of type 2 diabetes mellitus Obesity (BMI 30-39.9) Obstructive sleep apnea Prostate CA Rheumatoid arthritis SOB (shortness of breath) - Tobacco History Second Hand Smoke Exposure: No Smoking Status: Never smoker - Alcohol History How Often Do You Have a Drink Containing Alcohol: Never - Substance Use History Substance History: No History of Abuse Medications and Allergies Active Medications: Active Medications Al Hydroxide/Mg Hydroxide (Milk Of Lisa Liq) 30 ml PO Q12H PRN PRN Reason: CONSTIPATION Last Admin: 06/26/18 08:54 Dose: 30 ml Aspirin (Aspirin Chew) 81 mg PO DAILY [facility] Last Admin: 06/26/18 08:44 Dose: 81 mg Chlorhexidine Gluconate (Chlorhexidine 2% Cloth) 3 pack TOPICAL RUBBERIZING MECHANIC [facility] Stop: 06/27/18 05:49 Clonidine HCl (Catapres) 0.2 mg PO Q6H PRN PRN Reason: SBP > 160 mmHg Clopidogrel Bisulfate (Plavix) 75 mg PO DAILY [facility] Last Admin: 06/26/18 08:43 Dose: 75 mg Ferrous Sulfate (Ferosul) 325 mg PO DAILY [facility] Last Admin: 06/26/18 08:44 Dose: 325 mg Hydralazine HCl (Apresoline Inj) 10 mg IV.PUSH Q30M PRN PRN Reason: SBP > 160 mmHg Sodium Chloride (Ns Inj) 1,000 mls @ 125 mls/hr IV.CONT .Q8H [facility] Cefazolin Sodium/Dextrose (Ancef 2 Gm Premix Inj) 2 gm in 50 mls @ 100 mls/hr IV.SIG ONCE [facility] Stop: 06/27/18 05:49 Last Infusion: 06/24/18 08:28 Dose: Infused Lisinopril (Prinivil) 5 mg PO DAILY [facility] Last Admin: 06/26/18 08:44 Dose: 5 mg Mupirocin (Bactroban 2% Nasal Oint) 1 applicatio EACH NARE RUBBERIZING MECHANIC [facility] Stop: 06/27/18 05:49 Ondansetron HCl (Zofran Inj) 4 mg IV.PUSH ONCE PRN PRN Reason: NAUSEA OR VOMITING Oxycodone/Acetaminophen (Percocet 5/325 Mg) 1 tab PO Q6H PRN PRN Reason: PAIN SCALE 3 TO 5 Last Admin: 06/25/18 14:23 Dose: 1 tab Povidone Iodine (Betadine 5% Antisepsis Kit) 1 applicatio [employer] RUBB[employer] MECH[employer]IC [facility] Stop: 06/27/18 05:49 Sodium Chloride (Ns Flush) 2 ml IV.FLUSH BID [facility] Last Admin: 06/26/18 08:44 Dose: 2 ml Sodium Chloride (Ns Flush) 2 ml IV.FLUSH PRN PRN PRN Reason: FLUSH AFTER USING IV ACCESS Allergies Allergy/AdvReac Type Severity Reaction Status Date / Time ciprofloxacin AdvReac Nausea Verified 06/24/18 07:29 Home Medications Medication Instructions Recorded Confirmed Type aspirin [Aspir-81] 81 mg PO DAILY 03/27/18 06/24/18 History cholecalciferol (vitamin D3) 2,000 unit PO TID 03/27/18 06/24/18 History [Vitamin D3] cyanocobalamin (vitamin B-12) 1,000 mcg PO DAILY 03/27/18 06/24/18 History [Vitamin B-12] febuxostat [Uloric] 40 mg PO DAILY 03/27/18 06/24/18 History furosemide 20 mg PO DAILY 03/27/18 06/24/18 History leflunomide 10 mg PO DAILY 03/27/18 06/24/18 History pyridoxine (vitamin B6) [Vitamin 100 mg PO BID 03/27/18 06/24/18 History B-6] rosuvastatin 5 mg PO DAILY 03/27/18 06/24/18 History sodium bicarbonate 650 mg PO Q4-6H 03/27/18 06/24/18 History vit C-vit E-jhyikz-udo-om-3 1 cap PO DAILY 03/27/18 06/24/18 History [Ocuvite] Physical Exam Vital Signs - 24 hr 06/25/18 13:00 06/25/18 14:00 06/25/18 15:00 Temperature 98.4 F Pulse Rate 88 110 H 80 Respiratory Rate 18 Blood Pressure 134/63 Pulse Oximetry 99 06/25/18 16:00 06/25/18 17:00 06/25/18 18:00 Temperature Pulse Rate 94 H 88 78 Respiratory Rate Blood Pressure Pulse Oximetry 06/25/18 19:00 06/25/18 20:00 06/25/18 21:00 Temperature 98.9 F Pulse Rate 94 H 70 65 Respiratory Rate 18 Blood Pressure 150/72 H Pulse Oximetry 99 06/25/18 22:00 06/25/18 23:00 06/26/18 00:00 Temperature 98.5 F Pulse Rate 61 98 H 82 Respiratory Rate 18 Blood Pressure 110/57 L Pulse Oximetry 99 06/26/18 01:00 06/26/18 02:00 06/26/18 02:55 Temperature Pulse Rate 69 65 66 Respiratory Rate Blood Pressure Pulse Oximetry 06/26/18 03:00 06/26/18 04:00 06/26/18 05:00 Temperature 99.2 F Pulse Rate 98 H 68 65 Respiratory Rate 18 Blood Pressure 109/56 L Pulse Oximetry 99 06/26/18 05:49 06/26/18 07:00 06/26/18 08:00 Temperature 98.1 F Pulse Rate 69 83 88 Respiratory Rate 18 Blood Pressure 120/61 Pulse Oximetry 99 06/26/18 09:00 06/26/18 10:00 06/26/18 11:00 Temperature 98.2 F Pulse Rate 100 H 94 H 92 H Respiratory Rate 18 Blood Pressure 131/60 Pulse Oximetry 100 06/26/18 12:00 Temperature Pulse Rate 91 H Respiratory Rate Blood Pressure Pulse Oximetry Physical Exam: NAD RRR Clear lungs Abd soft NT. Helton is in place Laboratory Results - last 24 hr 06/24/18 06/25/18 06:02 22:30 Urine Color Red Urine Clarity Cloudy H Urine pH 6.0 Ur Specific [place] 1.014 Urine Protein 100 H Urine Glucose (UA) Negative Urine Ketones Negative Urine Occult Blood Large H Urine Nitrate Negative Urine Bilirubin Negative Urine Urobilinogen Less than 2 Ur Leukocyte Esterase Negative Urine RBC Urine WBC 34 H Ur Squamous Epith Cells 1 Urine Bacteria Occasional H Urine Mucus Few H Micro UA Comment Cath-culture ind Ur Microscopic Review Not Reportable Urine Culture Comments Cath-cult indicated MTS Gel Crossmatch See Detail Result Diagrams: 06/25/18 04:49 06/25/18 04:49 Assessment and Plan - Plan 73y.o M s/p TAVR procedure 2d/a Has post op retention - No acute intervention - Continue care as per primary team - Keep helton catheter in and d/c with it - Start flomax and continue after d/c - Pt to f/u with his , Dr Charles, On Friday next week as outpt for voiding trial Discussed Condition With: Dr Roxana CUMMINGS attending
--- NOTE | 2018-06-26 14:50 | P.DCO ---
- Diagnosis (1) Severe aortic valve stenosis Status: Acute (2) Cardiomyopathy Status: Chronic (3) CAD (coronary artery disease), [place] coronary artery Status: Acute (4) Combined systolic and diastolic congestive heart failure, NYHA class 3 Status: Chronic (5) S/P TAVR (transcatheter aortic valve replacement) Status: Acute (6) Hematuria Status: Acute - Home Health Nursing Order: Medical education, Signs/symptoms of disease process, Wound care and dressing changes, Nursing assessment with vital signs, Headley catheter maintenance - Case Management Consult Case Management Consult-Home Health: Yes - Certification I have seen patient Garry Zaldivar on 06/26/18. My clinical findings support the need for the requested home health care services because: Deconditioned with increased weakness I certify that my clinical findings support that this patient is homebound because: Post-op weakness
--- NOTE | 2018-06-26 15:01 | P.PNCV ---
- Note Subjective/Hospital Course: 72-year-old male with history of chronic kidney disease, rheumatoid arthritis, and severe aortic valve stenosis who presents with symptoms of progressive exertional dyspnea. Patient was evaluated in the outpatient setting with transthoracic echocardiogram which revealed severe aortic valve stenosis. Patient underwent preprocedural cardiac catheterization and percutaneous coronary intervention with bare-metal stent to the obtuse marginal branch. In the preoperative evaluation patient was found to have poor dentition had 23 teeth removed. Patient was also found on transthoracic echocardiogram to have a nonischemic cardiomyopathy with severely reduced left ventricular systolic function ejection fraction between 25 and 30%. Patient was evaluated by cardiothoracic surgery and felt to be intermediate to high surgical mortality risk and was referred for consideration of transcatheter valve replacement. Patient is now here for scheduled elective procedure. 06/24 [employer] 34 mm Evolut R transcatheter aortic valve 06/25 Echo The left ventricular systolic function is low normal with an estimated ejection fraction in the range of 50- 55%. Normal left ventricular size. Wall thickness is normal. No regional wall motion abnormalities are present. The aortic valve is not well visualized. Trace to mild perivalvular leak No aortic valve stenosis. Aortic valve area is 1.5 cm. Aortic valve mean gradient is 9 mmHg. pt was seen and eval by ear specialist Dr Bermudez no need for pacing / recommend RICARDO at discharge pt also developed hematuria thia am 06/26 pt had helton cath placed yesterday, unable to void clots of blood noted in tubing and bag, urine showed 34K WBC helton cath was replaced , color now light peach, pt was seen by Urology placed on flomax, keep helton in place with voiding trial with Dr Charles on dc home remains in NSR stable for dc home Objective: Vital Signs - 24 hr 06/25/18 15:00 06/25/18 16:00 06/25/18 17:00 Temperature 98.4 F Pulse Rate 80 94 H 88 Respiratory Rate 18 Blood Pressure 134/63 Pulse Oximetry 99 06/25/18 18:00 06/25/18 19:00 06/25/18 20:00 Temperature 98.9 F Pulse Rate 78 94 H 70 Respiratory Rate 18 Blood Pressure 150/72 H Pulse Oximetry 99 06/25/18 21:00 06/25/18 22:00 06/25/18 23:00 Temperature 98.5 F Pulse Rate 65 61 98 H Respiratory Rate 18 Blood Pressure 110/57 L Pulse Oximetry 99 06/26/18 00:00 06/26/18 01:00 06/26/18 02:00 Temperature Pulse Rate 82 69 65 Respiratory Rate Blood Pressure Pulse Oximetry 06/26/18 02:55 06/26/18 03:00 06/26/18 04:00 Temperature 99.2 F Pulse Rate 66 98 H 68 Respiratory Rate 18 Blood Pressure 109/56 L Pulse Oximetry 99 06/26/18 05:00 06/26/18 05:49 06/26/18 07:00 Temperature 98.1 F Pulse Rate 65 69 83 Respiratory Rate 18 Blood Pressure 120/61 Pulse Oximetry 99 06/26/18 08:00 06/26/18 09:00 06/26/18 10:00 Temperature Pulse Rate 88 100 H 94 H Respiratory Rate Blood Pressure Pulse Oximetry 06/26/18 11:00 06/26/18 12:00 06/26/18 13:00 Temperature 98.2 F Pulse Rate 92 H 91 H 82 Respiratory Rate 18 Blood Pressure 131/60 Pulse Oximetry 100 GENERAL: A&O x 3 SKIN: Warm and dry. HEAD: Normocephalic. EYES: No scleral icterus. No injection or drainage. NECK: Supple, trachea midline. No JVD or lymphadenopathy. CARDIOVASCULAR: Regular rate and rhythm without, gallops, or rubs, soft murmur RESPIRATORY: Breath sounds equal bilaterally. No accessory muscle use. GASTROINTESTINAL: Abdomen soft, non-tender, nondistended. MUSCULOSKELETAL: No cyanosis, or edema. BACK: Nontender without obvious deformity. No CVA tenderness. : helton cath on place with peach colored urine Labs: Laboratory Results - last 12 hr 06/24/18 06:02 MTS Gel Crossmatch See Detail Result Diagrams: 06/25/18 04:49 06/25/18 04:49 - Plan (5) S/P TAVR (transcatheter aortic valve replacement) Plan: on ASA, plavix (6) Hematuria Plan: urology consulted pt unable to void dc home with helton cath and flomax pt to see Dr Charles for voiding trials on
== END 2018-06-26 16:35 | disposition home health service (06) ==
LOC: HSDI 05:41 → HDIC 05:46 → HCVI 09:50 → HCPC 13:03
PROVIDERS: ADMIT Internal Medicine; ATTEND Internal Medicine
PROC: TAVRHYB (ICD-10-PCS; 2018-06-24 08:00)